=== PATIENT | male | born 1965 | race African-American/Black ===

== ENCOUNTER 2016-02-11 09:36 | Inpatient (IN) | payer OTHER ==
[2016-02-11 10:41] VITALS: BMI 39.9
--- NOTE | 2016-02-11 13:28 | HP ---
Admission ROS [facility] - [facility] Chief Complaint: I am here for rehab. Allergies/Adverse Reactions: Allergies Allergy/AdvReac Type Severity Reaction Status Date / Time ALEKSANDER Inhibitors Allergy Severe unknown Verified 02/11/16 12:26 History of Present Illness: pt is a 50yr old male with a history of alcohol dependence. seeking rehab for treatment. pt is also on a mmtp program received 70mg of methadone today, verification done. Exam Limitations: No Limitations - Ebola screening Have you traveled outside of the country in the last 21 days: No Have you had contact with anyone from an Ebola affected area: No Have you been sick,other than usual withdrawal symptoms: No Do you have a fever: No - Review of Systems Constitutional: No Symptoms Reported EENT: reports: Tearing Respiratory: reports: No Symptoms reported Cardiac: reports: No Symptoms Reported GI: reports: No Symptoms Reported : reports: No Symptoms Reported Musculoskeletal: reports: No Symptoms Reported Integumentary: reports: No Symptoms Reported Neuro: reports: No Symptoms reported Endocrine: reports: No Symptoms Reported Hematology: reports: No Symptoms Reported Psychiatric: reports: Judgement Intact, Orientated x3 Other Systems: Reviewed and Negative Patient History - Patient Medical History Hx Anemia: No Hx Asthma: No Hx Chronic Obstructive Pulmonary Disease (COPD): No Hx Cancer: No Hx Cardiac Disorders: No Hx Congestive Heart Failure: No Hx Hypertension: Yes (not taking any med) Hx Hypercholesterolemia: No Hx Pacemaker: No HX Cerebrovascular Accident: No Hx Seizures: No Hx Dementia: No Hx Diabetes: Yes (on metformin) Hx Gastrointestinal Disorders: No Hx Liver Disease: No Hx Genitourinary Disorders: No Hx Sexually Transmitted Disorders: No Hx Renal Disease (ESRD): No Hx Thyroid Disease: No Hx Human Immunodeficiency Virus (HIV): No (negative) Hx Hepatitis C: No Hx Depression: Yes Hx Suicide Attempt: No (denies) Hx Bipolar Disorder: No Hx Schizophrenia: Yes - Patient Surgical History Past Surgical History: No Hx Neurologic Surgery: No Hx Cataract Extraction: No Hx Cardiac Surgery: No Hx Lung Surgery: No Hx Breast Surgery: No Hx Breast Biopsy: No Hx Abdominal Surgery: No Hx Appendectomy: No Hx Cholecystectomy: No Hx Genitourinary Surgery: No Hx Section: No Hx Orthopedic Surgery: No Anesthesia Reaction: No - PPD History Documented Results: Negative w/proof Date: 01/31/16 PPD to be Administered?: No - Reproductive History Patient is a Female of Child Bearing Age (11 -55 yrs old): No - Smoking Cessation Smoking history: Current every day smoker Have you smoked in the past 12 months: Yes Aproximately how many cigarettes per day: 20 Cigars Per Day: 0 Hx Chewing Tobacco Use: No Initiated information on smoking cessation: Yes 'Breaking Loose' booklet given: 02/11/16 - Substance & Tx. History Hx Alcohol Use: Yes Substance Use Type: Alcohol, Cocaine Hx Substance Use Treatment: No Family Disease History - Family Disease History Family History: Denies Admission Physical Exam [facility] - Vital Signs Vital Signs: Vital Signs - 24 hr 02/11/16 10:39 Temperature 95.6 F L Pulse Rate 59 L Respiratory 20 Rate Blood Pressure 129/70 - Physical General Appearance: Yes: No Apparent Distress, Appropriately Dressed, Tremorous HEENTM: Yes: Hearing grossly Normal, Normal Voice, Nasal Congestion Respiratory: Yes: Lungs Clear, Normal Breath Sounds, No Respiratory Distress Neck: Yes: Within Normal Limits, No masses,lesions,Nodules Breast: Yes: Within Normal Limits Cardiology: Yes: Regular Rhythm, Regular Rate, S1, S2 Abdominal: Yes: Normal Bowel Sounds, Non Tender, Soft Genitourinary: Yes: Within Normal Limits Back: Yes: Normal Inspection Musculoskeletal: Yes: full range of Motion Extremities: Yes: Normal Capillary Refill, Normal Inspection Neurological: Yes: Fully Oriented, Alert, Normal Response Integumentary: Yes: Normal Color Lymphatic: Yes: Within Normal Limits - Diagnostic (1) Nicotine dependence Current Visit: Yes Status: Chronic Qualifiers: Nicotine product type: cigarettes Substance use status: uncomplicated Qualified Code(s): F17.210 - Nicotine dependence, cigarettes, uncomplicated (2) Diabetes mellitus Current Visit: Yes Status: Chronic Qualifiers: Diabetes mellitus type: type 2 Diabetes mellitus complication status: without complication (3) Methadone maintenance therapy patient Current Visit: Yes Status: Chronic Comment: last dose of methadone is 70mg given today. verification done. [facility] Breath Alcohol Content Breath Alcohol Content: 0 Urine Drug Screen - Results Drug Screen Negative: No Urine Drug Screen Results: ANKIT-Cocaine, OPI-Opiates, BZO-Benzodiazepines, MTD- Methadone
[2016-02-11] MEDS ORDERED: MAGNESIUM CITRATE 300 ML BOTTLE PO PRN (13:33)
[2016-02-11] MEDS ORDERED: MAG HYDROX/AL HYDROX/SIMETH 30 ML UNIT-DOSE CUP PO PRN (13:33)
[2016-02-11] MEDS ORDERED: guaiFENesin/D-METHORPHAN HB 10 ML UNIT-DOSE CUPS PO PRN (13:33)
[2016-02-11] MEDS ORDERED: IBUPROFEN 400 MG TABLET (FP) PO PRN (13:33)
[2016-02-11] MEDS ORDERED: MAGNESIUM HYDROX 2400MG/30ML ORAL SUSPENSION 30 ML CUP PO PRN (13:33)
[2016-02-11] MEDS ORDERED: P-EPHED 60MG/TRIPROLIDI 2.5MG TABLET PO PRN (13:33)
[2016-02-11] MEDS ORDERED: hydrOXYzine PAMOATE 50 MG CAPSULE (FP) PO PRN (13:33)
[2016-02-11] MEDS ORDERED: NICOTINE POLACRILEX 4 MG GUM BC PRN (13:33)
[2016-02-11] MEDS ORDERED: ACETAMINOPHEN 325 MG TABLET (FP) PO PRN (13:33)
[2016-02-11] MEDS ORDERED: LOPERAMIDE HCL 2 MG CAPSULE PO PRN (13:33)
[2016-02-11] MEDS ORDERED: MENTHOL/PHENOL 1 EACH UD MM PRN (13:33)
[2016-02-11 20:14] LABS: URINE APPEARANCE SLCLOUDY; URINE BILIRUBIN NEGATIVE (NEGATIVE); URINE BLOOD NEGATIVE (NEGATIVE); URINE COLOR LTYELLOW; URINE GLUCOSE (UA) NEGATIVE (NEGATIVE); URINE KETONE NEGATIVE (NEGATIVE); URINE LEUK ESTERASE NEGATIVE (NEGATIVE); URINE NITRITE NEGATIVE (NEGATIVE); URINE PROTEIN NEGATIVE (NEGATIVE); URINE UROBILINOGEN NEGATIVE E.U./dl (0.2-1.0)
[2016-02-11] MEDS: diphenhydrAMINE HCL 50 MG CAPSULE PO PRN (22:02)
[2016-02-11] MEDS: THIAMINE HCL 100 MG TABLET (FP) PO SCH (22:02)
[2016-02-12] MEDS ORDERED: METHADONE 40 MG, METHADONE 30 MG PO SCH (06:00)
[2016-02-12] MEDS ORDERED: METHADONE HCL 10 MG TABLET PO SCH (06:00)
[2016-02-12] MEDS ORDERED: METHADONE HCL 40 MG DISPERSABLE TABLET ONE (06:36)
[2016-02-12] MEDS ORDERED: METHADONE HCL 10 MG TABLET ONE (06:37)
[2016-02-12] MEDS: metFORMIN HCL 500 MG TABLET (FP) PO SCH (08:30)
[2016-02-12] MEDS: PRENATAL VITAMINS W/ FOLIC ACID TABLET (FP) PO SCH (09:42)
[2016-02-12] MEDS: NICOTINE 21 MG/24 HOURS TOPICAL PATCH TD SCH (09:59)
--- NOTE | 2016-02-12 12:01 | HP ---
Psychiatrist Admission - Data Date of interview: 02/12/16 Admission source: [facility] Identifying data: This is the first admission to [address] [place] [address] rehabilitation for this 50 years old single AA male father of 3,resides alone, supported by [facility] Medical History: Significant for DM. Psychiatric History: Patient was seen by psychiatrist about 10 years ago due to depression,anxiety,drug and alcohol use.Patient is poor historian due to his drowsiness,cognitive impairment and some reluctancy to communicate.Reports 2 psychiatric admissions a few years ago.Patient is not able to recall the name of the hospitals and medications has been taken as well as diagnosis(probably schizophrenia?).He was under care of psychiatrist at [facility].Current medications:Seroquel 100 mg po hs,Prozac 20 mg po daily and Xanax PRN.Report history of auditory hallucinations and paranoid feelings.Patient is willing to restart his Prozac 20 mg po daily and Seroquel 100 mg po hs,still depressed,irritable,somewhat dysphoric. Physical/Sexual Abuse/Trauma History: denies Vital Signs: Vital Signs - 24 hr 02/12/16 02/12/16 00:30 07:35 Temperature 97.5 F L Pulse Rate 54 L Respiratory 20 20 Rate Blood Pressure 139/71 Allergies/Adverse Reactions: Allergies Allergy/AdvReac Type Severity Reaction Status Date / Time ALEKSANDER Inhibitors Allergy Severe unknown Verified 02/11/16 12:26 Date of last physical exam: 02/11/16 Concur with the findings of this exam: Yes - Substance Abuse/Tx History Hx Alcohol Use: Yes (reports drinking since 15 yo,6 packs daily) Hx Substance Use: Yes (heroin since 7 yo(MMTP 70 mg po daily)) Substance Use Type: Alcohol, Heroin Hx Substance Use Treatment: Yes (this is his first inpatient rehab treatment) - Admission Criteria Previous failed treatment: Yes Poor recovery environment: Yes Comorbidities: Yes Lacks judgement: Yes Mental Status Exam - Mental Status Exam Alert and Oriented to: Time, Place, Person Cognitive Function: Grossly Intact Patient Appearance: Unkempt Mood: Sad, Nervous Affect: Labile Patient Behavior: Cooperative Speech Pattern: Clear Voice Loudness: Normal Thought Process: Goal Oriented Thought Disorder: Being Controlled Hallucinations: Denies Suicidal Ideation: Denies Homicidal Ideation: Denies Insight/Judgement: Fair Sleep: Fair Appetite: Fair Muscle strength/Tone: Normal Gait/Station: Normal Psychiatric Findings - Problem List ([place] 1, 2,3) (1) Diabetes mellitus Current Visit: Yes Status: Chronic Qualifiers: Diabetes mellitus type: type 2 Diabetes mellitus complication status: without complication (2) Methadone maintenance therapy patient Current Visit: Yes Status: Chronic Comment: last dose of methadone is 70mg given today. verification done. (3) Nicotine dependence Current Visit: Yes Status: Chronic Qualifiers: Nicotine product type: cigarettes Substance use status: uncomplicated Qualified Code(s): F17.210 - Nicotine dependence, cigarettes, uncomplicated (4) Opioid dependence Current Visit: Yes Status: Chronic (5) Drug-induced mood disorder Current Visit: Yes Status: Chronic (6) Schizoaffective disorder Current Visit: Yes Status: Suspected - Initial Treatment Plan Initial Treatment Plan: Continue current meds:Prozac 20 mg po daily,Seroquel 100 mg po hs.Will monitor progress.
[2016-02-12] MEDS: FLUoxetine HCL 20 MG CAPSULE (FP) PO SCH (13:22)
[2016-02-12] MEDS: QUEtiapine FUMARATE 100 MG TABLET (FP) PO SCH (21:19)
[2016-02-12] MEDS: THIAMINE HCL 100 MG TABLET (FP) PO SCH (21:19)
[2016-02-12] MEDS: diphenhydrAMINE HCL 50 MG CAPSULE PO PRN (21:20)
[2016-02-13] MEDS ORDERED: METHADONE HCL 40 MG DISPERSABLE TABLET PO SCH (06:00)
[2016-02-13] MEDS ORDERED: METHADONE HCL 40 MG DISPERSABLE TABLET ONE (06:18)
[2016-02-13] MEDS ORDERED: METHADONE HCL 10 MG TABLET ONE (06:19)
[2016-02-13] MEDS: metFORMIN HCL 500 MG TABLET (FP) PO SCH (06:19)
[2016-02-13] MEDS: METHADONE 40 MG, METHADONE 20 MG PO SCH (06:20)
[2016-02-13] MEDS: PRENATAL VITAMINS W/ FOLIC ACID TABLET (FP) PO SCH (10:23)
[2016-02-13] MEDS: FLUoxetine HCL 20 MG CAPSULE (FP) PO SCH (10:24)
[2016-02-13] MEDS: NICOTINE 21 MG/24 HOURS TOPICAL PATCH TD SCH (10:24)
--- NOTE | 2016-02-13 14:45 | PN ---
Psychiatric Progress Note Vital Signs: Vital Signs Period Temp Pulse Resp BP Sys/[place] Pulse Ox Last 24 Hr 97.5 F 54 18-18 145/80 Date of Session: 02/13/16 Chief Complaint:: "refusing prozac" HPI: Patient is addressing opioid, nicotine dependence comorbid Schizoaffective disorder ROS: DM and Asthma. Current Medications: Active Medications Generic Name Dose Route Start Last Admin Trade Name Freq PRN Reason Stop Dose Admin Acetaminophen 650 mg 02/11/16 13:33 Tylenol - PO Q4H PRN PAIN Al Hydroxide/Mg Hydroxide 30 ml 02/11/16 13:33 Mylanta Oral Suspension - PO Q6H PRN DYSPEPSIA Diphenhydramine HCl 50 mg 02/11/16 13:33 02/12/16 21:20 Benadryl - PO 50 mg HSMR1 PRN Administration INSOMNIA Eucalyptus/Menthol/Phenol/Sorbitol 1 each 02/11/16 13:33 Cepastat Lozenge - MM Q4H PRN SORE THROAT Guaifenesin 10 ml 02/11/16 13:33 Robitussin Dm - PO Q6H PRN COUGH Hydroxyzine Pamoate 50 mg 02/11/16 13:33 Vistaril - PO Q4H PRN AGITATION Ibuprofen 400 mg 02/11/16 13:33 Motrin - PO Q6H PRN SEVERE PAIN Loperamide HCl 4 mg 02/11/16 13:33 Imodium - PO Q6H PRN DIARRHEA Magnesium Citrate 300 ml 02/11/16 13:33 Citroma - PO Q48H PRN CONSTIPATION Magnesium Hydroxide 30 ml 02/11/16 13:33 Milk Of Magnesia - PO DAILY PRN CONSTIPATION Metformin HCl 1,000 mg 02/12/16 07:00 02/13/16 06:19 Glucophage - PO 1,000 mg ACBK CHAPO Administration Methadone HCl 40 mg/ Methadone 60 mg 02/13/16 06:00 02/13/16 06:20 HCl 20 mg PO 02/18/16 05:59 60 mg DAILY@0600 CHAPO Administration Nicotine 21 mg 02/12/16 10:00 02/13/16 10:24 Nicoderm Patch - TD Not Given DAILY CHAPO Nicotine Polacrilex 4 mg 02/11/16 13:33 Nicorette Gum - BC Q2H PRN NICOTINE REPLACEMENT RX Multivit/Folic Acid/Iron 1 tab 02/12/16 10:00 02/13/16 10:23 Vitamins (Sjr) - PO 1 tab DAILY CHAPO Administration Pseudoephedrine/Triprolidine 1 combo 02/11/16 13:33 Actifed - PO TID PRN NASAL CONGESTION Quetiapine Fumarate 100 mg 02/12/16 22:00 02/12/16 21:19 Seroquel - PO 100 mg HS CHAPO Administration Thiamine HCl 100 mg 02/11/16 22:00 02/12/16 21:19 Vitamin B1 - PO 100 mg HS CHAPO Administration Medication(s) Change(s): d/c prozac Current Side Effect: Yes ("Slow") Lab tests ordered: No Lab tests reviewed: Yes Provider note:: As reported by the staff patient refusing his Prozac, reviwed the chart, Dr.K alegria note apprecieated, patient was seen and asked about Prozac issues, he reported that medications "makes me think slow", and he does not want to continue meds but willing to take Seroquel, properties and indication of each medications discussed with the patient, discussed alternative antidepressants (wellbutrin) patient declined any recommendations, will d/c continue to monitor progress. Psycheducation provided, MSE completed. Total face to face time:: 35 Mental Status Exam - Mental Status Exam Alert and Oriented to: Time, Place, Person Cognitive Function: Grossly Intact Patient Appearance: Well Groomed Mood: Sad Affect: Mood Congruent Patient Behavior: Appropriate Speech Pattern: Appropriate Voice Loudness: Normal Thought Process: Goal Oriented Thought Disorder: Not Present Hallucinations: Denies Suicidal Ideation: Denies Homicidal Ideation: Denies Insight/Judgement: Fair Sleep: Fair Appetite: Fair Muscle strength/Tone: Normal Gait/Station: Normal Psychiatric Treatment Plan - Problem List (1) Nicotine dependence Current Visit: Yes Qualifiers: Nicotine product type: cigarettes Substance use status: uncomplicated Qualified Code(s): F17.210 - Nicotine dependence, cigarettes, uncomplicated (2) Opioid dependence Current Visit: Yes (3) Schizoaffective disorder Current Visit: Yes
[2016-02-13] MEDS: QUEtiapine FUMARATE 100 MG TABLET (FP) PO SCH (21:27)
[2016-02-13] MEDS: THIAMINE HCL 100 MG TABLET (FP) PO SCH (21:27)
[2016-02-13] MEDS: diphenhydrAMINE HCL 50 MG CAPSULE PO PRN (21:27)
[2016-02-14] MEDS ORDERED: METHADONE HCL 10 MG TABLET ONE (03:05)
[2016-02-14] MEDS ORDERED: METHADONE HCL 40 MG DISPERSABLE TABLET ONE (03:05)
[2016-02-14] MEDS: METHADONE 40 MG, METHADONE 20 MG PO SCH (06:11)
[2016-02-14] MEDS: metFORMIN HCL 500 MG TABLET (FP) PO SCH (06:12)
[2016-02-14] MEDS: PRENATAL VITAMINS W/ FOLIC ACID TABLET (FP) PO SCH (10:04)
[2016-02-14] MEDS: NICOTINE 21 MG/24 HOURS TOPICAL PATCH TD SCH (10:04)
[2016-02-14] MEDS: THIAMINE HCL 100 MG TABLET (FP) PO SCH (21:55)
[2016-02-14] MEDS: QUEtiapine FUMARATE 100 MG TABLET (FP) PO SCH (21:55)
[2016-02-14] MEDS: diphenhydrAMINE HCL 50 MG CAPSULE PO PRN (21:55)
[2016-02-15] MEDS ORDERED: METHADONE HCL 10 MG TABLET ONE (04:03)
[2016-02-15] MEDS ORDERED: METHADONE HCL 40 MG DISPERSABLE TABLET ONE (04:03)
[2016-02-15] MEDS: METHADONE 40 MG, METHADONE 20 MG PO SCH (06:01)
[2016-02-15] MEDS: metFORMIN HCL 500 MG TABLET (FP) PO SCH (06:01)
[2016-02-15] MEDS: PRENATAL VITAMINS W/ FOLIC ACID TABLET (FP) PO SCH (10:05)
[2016-02-15] MEDS: NICOTINE 21 MG/24 HOURS TOPICAL PATCH TD SCH (10:05)
[2016-02-15] MEDS: QUEtiapine FUMARATE 100 MG TABLET (FP) PO SCH (21:14)
[2016-02-15] MEDS: THIAMINE HCL 100 MG TABLET (FP) PO SCH (21:14)
[2016-02-15] MEDS: diphenhydrAMINE HCL 50 MG CAPSULE PO PRN (21:15)
[2016-02-16] MEDS ORDERED: METHADONE HCL 40 MG DISPERSABLE TABLET ONE (06:05)
[2016-02-16] MEDS ORDERED: METHADONE HCL 10 MG TABLET ONE (06:06)
[2016-02-16] MEDS: METHADONE 40 MG, METHADONE 20 MG PO SCH (06:06)
[2016-02-16] MEDS: metFORMIN HCL 500 MG TABLET (FP) PO SCH (06:06)
[2016-02-16] MEDS: PRENATAL VITAMINS W/ FOLIC ACID TABLET (FP) PO SCH (10:20)
[2016-02-16] MEDS: NICOTINE 21 MG/24 HOURS TOPICAL PATCH TD SCH (10:20)
[2016-02-16] MEDS: THIAMINE HCL 100 MG TABLET (FP) PO SCH (21:28)
[2016-02-16] MEDS: QUEtiapine FUMARATE 100 MG TABLET (FP) PO SCH (21:28)
[2016-02-16] MEDS: diphenhydrAMINE HCL 50 MG CAPSULE PO PRN (21:29)
[2016-02-17] MEDS ORDERED: METHADONE HCL 40 MG DISPERSABLE TABLET ONE (03:05)
[2016-02-17] MEDS ORDERED: METHADONE HCL 10 MG TABLET ONE (03:05)
[2016-02-17] MEDS: METHADONE 40 MG, METHADONE 20 MG PO SCH (06:06)
[2016-02-17] MEDS: metFORMIN HCL 500 MG TABLET (FP) PO SCH (06:07)
[2016-02-17] MEDS: NICOTINE 21 MG/24 HOURS TOPICAL PATCH TD SCH (09:50)
[2016-02-17] MEDS: PRENATAL VITAMINS W/ FOLIC ACID TABLET (FP) PO SCH (09:50)
--- NOTE | 2016-02-17 12:55 | PN ---
[facility] Progress Note Note: methadone dose decreased to methadone 50mg /d at request of pt.
[2016-02-17] MEDS: QUEtiapine FUMARATE 100 MG TABLET (FP) PO SCH (21:44)
[2016-02-17] MEDS: diphenhydrAMINE HCL 50 MG CAPSULE PO PRN (21:44)
[2016-02-17] MEDS: THIAMINE HCL 100 MG TABLET (FP) PO SCH (21:44)
[2016-02-18] MEDS ORDERED: METHADONE HCL 40 MG DISPERSABLE TABLET ONE (03:17)
[2016-02-18] MEDS ORDERED: METHADONE HCL 10 MG TABLET ONE (03:17)
[2016-02-18] MEDS ORDERED: METHADONE HCL 40 MG DISPERSABLE TABLET PO SCH (06:00)
[2016-02-18] MEDS: METHADONE 40 MG, METHADONE 10 MG PO SCH (06:03)
[2016-02-18] MEDS: metFORMIN HCL 500 MG TABLET (FP) PO SCH (06:03)
[2016-02-18] MEDS: NICOTINE 21 MG/24 HOURS TOPICAL PATCH TD SCH (10:05)
[2016-02-18] MEDS: PRENATAL VITAMINS W/ FOLIC ACID TABLET (FP) PO SCH (10:05)
[2016-02-18] MEDS: diphenhydrAMINE HCL 50 MG CAPSULE PO PRN (21:28)
[2016-02-18] MEDS: QUEtiapine FUMARATE 100 MG TABLET (FP) PO SCH (21:28)
[2016-02-18] MEDS: THIAMINE HCL 100 MG TABLET (FP) PO SCH (21:28)
[2016-02-19] MEDS ORDERED: METHADONE HCL 40 MG DISPERSABLE TABLET ONE (05:08)
[2016-02-19] MEDS ORDERED: METHADONE HCL 10 MG TABLET ONE (05:09)
[2016-02-19] MEDS: metFORMIN HCL 500 MG TABLET (FP) PO SCH (06:09)
[2016-02-19] MEDS: METHADONE 40 MG, METHADONE 10 MG PO SCH (06:09)
[2016-02-19] MEDS: PRENATAL VITAMINS W/ FOLIC ACID TABLET (FP) PO SCH (10:17)
[2016-02-19] MEDS: NICOTINE 21 MG/24 HOURS TOPICAL PATCH TD SCH (10:17)
[2016-02-19] MEDS: QUEtiapine FUMARATE 100 MG TABLET (FP) PO SCH (21:01)
[2016-02-19] MEDS: THIAMINE HCL 100 MG TABLET (FP) PO SCH (21:01)
[2016-02-19] MEDS: diphenhydrAMINE HCL 50 MG CAPSULE PO PRN (21:01)
[2016-02-20] MEDS ORDERED: METHADONE HCL 10 MG TABLET ONE (05:11)
[2016-02-20] MEDS ORDERED: METHADONE HCL 40 MG DISPERSABLE TABLET ONE (05:11)
[2016-02-20] MEDS: metFORMIN HCL 500 MG TABLET (FP) PO SCH (06:33)
[2016-02-20] MEDS: METHADONE 40 MG, METHADONE 10 MG PO SCH (06:33)
--- NOTE | 2016-02-20 07:11 | PN ---
[facility] Progress Note Note: Last Vital Signs Temp Pulse Resp BP Pulse Ox 98.0 F 63 18 165/83 02/20/16 07:04 02/20/16 07:04 02/20/16 07:04 02/20/16 07:04 BP ELEVATED. CLONIDINE 0.1MG BID PRN ORDERED WILL CONTINUE TO MONITOR.
[2016-02-20] MEDS: cloNIDine HCL 0.1 MG TABLET PO PRN (07:58)
[2016-02-20] MEDS: PRENATAL VITAMINS W/ FOLIC ACID TABLET (FP) PO SCH (10:22)
[2016-02-20] MEDS: NICOTINE 21 MG/24 HOURS TOPICAL PATCH TD SCH (10:22)
[2016-02-20] MEDS: QUEtiapine FUMARATE 100 MG TABLET (FP) PO SCH (21:06)
[2016-02-20] MEDS: diphenhydrAMINE HCL 50 MG CAPSULE PO PRN (21:06)
[2016-02-20] MEDS: THIAMINE HCL 100 MG TABLET (FP) PO SCH (21:06)
[2016-02-21] MEDS: metFORMIN HCL 500 MG TABLET (FP) PO SCH (06:09)
[2016-02-21] MEDS: METHADONE HCL 40 MG DISPERSABLE TABLET PO SCH (06:10)
[2016-02-21] MEDS: NICOTINE 21 MG/24 HOURS TOPICAL PATCH TD SCH (09:40)
[2016-02-21] MEDS: PRENATAL VITAMINS W/ FOLIC ACID TABLET (FP) PO SCH (09:40)
[2016-02-21] MEDS: QUEtiapine FUMARATE 100 MG TABLET (FP) PO SCH (21:09)
[2016-02-21] MEDS: THIAMINE HCL 100 MG TABLET (FP) PO SCH (21:09)
[2016-02-21] MEDS: diphenhydrAMINE HCL 50 MG CAPSULE PO PRN (21:11)
[2016-02-22] MEDS: METHADONE HCL 40 MG DISPERSABLE TABLET PO SCH (06:27)
[2016-02-22] MEDS: metFORMIN HCL 500 MG TABLET (FP) PO SCH (06:27)
[2016-02-22] MEDS: PRENATAL VITAMINS W/ FOLIC ACID TABLET (FP) PO SCH (09:45)
[2016-02-22] MEDS: NICOTINE 21 MG/24 HOURS TOPICAL PATCH TD SCH (09:45)
[2016-02-22] MEDS: QUEtiapine FUMARATE 100 MG TABLET (FP) PO SCH (21:05)
[2016-02-22] MEDS: THIAMINE HCL 100 MG TABLET (FP) PO SCH (21:05)
[2016-02-22] MEDS: diphenhydrAMINE HCL 50 MG CAPSULE PO PRN (21:06)
[2016-02-23] MEDS: metFORMIN HCL 500 MG TABLET (FP) PO SCH (06:01)
[2016-02-23] MEDS: METHADONE HCL 40 MG DISPERSABLE TABLET PO SCH (06:01)
[2016-02-23] MEDS: NICOTINE 21 MG/24 HOURS TOPICAL PATCH TD SCH (10:08)
[2016-02-23] MEDS: PRENATAL VITAMINS W/ FOLIC ACID TABLET (FP) PO SCH (10:08)
[2016-02-23] MEDS: THIAMINE HCL 100 MG TABLET (FP) PO SCH (21:15)
[2016-02-23] MEDS: diphenhydrAMINE HCL 50 MG CAPSULE PO PRN (21:15)
[2016-02-23] MEDS: QUEtiapine FUMARATE 100 MG TABLET (FP) PO SCH (21:15)
[2016-02-24] MEDS: metFORMIN HCL 500 MG TABLET (FP) PO SCH (06:07)
[2016-02-24] MEDS: METHADONE HCL 40 MG DISPERSABLE TABLET PO SCH (06:42)
[2016-02-24] MEDS: PRENATAL VITAMINS W/ FOLIC ACID TABLET (FP) PO SCH (09:58)
[2016-02-24] MEDS: NICOTINE 21 MG/24 HOURS TOPICAL PATCH TD SCH (09:59)
[2016-02-24] MEDS: diphenhydrAMINE HCL 50 MG CAPSULE PO PRN (21:11)
[2016-02-24] MEDS: THIAMINE HCL 100 MG TABLET (FP) PO SCH (21:11)
[2016-02-24] MEDS: QUEtiapine FUMARATE 100 MG TABLET (FP) PO SCH (21:11)
[2016-02-25] MEDS: cloNIDine HCL 0.1 MG TABLET PO PRN (06:03)
[2016-02-25] MEDS: metFORMIN HCL 500 MG TABLET (FP) PO SCH (06:03)
[2016-02-25] MEDS: METHADONE HCL 40 MG DISPERSABLE TABLET PO SCH (06:04)
[2016-02-25] MEDS: PRENATAL VITAMINS W/ FOLIC ACID TABLET (FP) PO SCH (10:29)
[2016-02-25] MEDS: NICOTINE 21 MG/24 HOURS TOPICAL PATCH TD SCH (10:29)
[2016-02-25] MEDS: QUEtiapine FUMARATE 100 MG TABLET (FP) PO SCH (21:26)
[2016-02-25] MEDS: THIAMINE HCL 100 MG TABLET (FP) PO SCH (21:26)
[2016-02-25] MEDS: diphenhydrAMINE HCL 50 MG CAPSULE PO PRN (21:27)
[2016-02-26] MEDS: metFORMIN HCL 500 MG TABLET (FP) PO SCH (06:13)
[2016-02-26] MEDS: METHADONE HCL 40 MG DISPERSABLE TABLET PO SCH (06:13)
[2016-02-26 07:24] VITALS: TEMP 98.6
[2016-02-26 08:08] VITALS: BP 143/93; PULSE 68
[2016-02-26] MEDS: PRENATAL VITAMINS W/ FOLIC ACID TABLET (FP) PO SCH (09:50)
[2016-02-26] MEDS: NICOTINE 21 MG/24 HOURS TOPICAL PATCH TD SCH (09:50)
--- NOTE | 2016-02-26 10:02 | PN ---
Psychiatric Progress Note Vital Signs: Vital Signs Period Temp Pulse Resp BP Sys/[place] Pulse Ox Last 24 Hr 98.6 F 62-89 18-18 135-159/78-93 Date of Session: 02/26/16 Chief Complaint:: discharge visit HPI: Patient has addressed opioid, nicotine dependence comorbid Schizoaffective disorder ROS: DM and Asthma medically managed. Current Medications: Active Medications Generic Name Dose Route Start Last Admin Trade Name Freq PRN Reason Stop Dose Admin Acetaminophen 650 mg 02/11/16 13:33 Tylenol - PO Q4H PRN PAIN Al Hydroxide/Mg Hydroxide 30 ml 02/11/16 13:33 Mylanta Oral Suspension - PO Q6H PRN DYSPEPSIA Clonidine 0.1 mg 02/20/16 07:10 02/25/16 06:03 Catapres - PO 0.1 mg BID PRN Administration HYPERTENSION Diphenhydramine HCl 50 mg 02/11/16 13:33 02/25/16 21:27 Benadryl - PO 50 mg HSMR1 PRN Administration INSOMNIA Eucalyptus/Menthol/Phenol/Sorbitol 1 each 02/11/16 13:33 Cepastat Lozenge - MM Q4H PRN SORE THROAT Guaifenesin 10 ml 02/11/16 13:33 Robitussin Dm - PO Q6H PRN COUGH Hydroxyzine Pamoate 50 mg 02/11/16 13:33 Vistaril - PO Q4H PRN AGITATION Ibuprofen 400 mg 02/11/16 13:33 Motrin - PO Q6H PRN SEVERE PAIN Loperamide HCl 4 mg 02/11/16 13:33 Imodium - PO Q6H PRN DIARRHEA Magnesium Citrate 300 ml 02/11/16 13:33 Citroma - PO Q48H PRN CONSTIPATION Magnesium Hydroxide 30 ml 02/11/16 13:33 Milk Of Magnesia - PO DAILY PRN CONSTIPATION Metformin HCl 1,000 mg 02/12/16 07:00 02/26/16 06:13 Glucophage - PO 1,000 mg ACBK CHAPO Administration Methadone HCl 40 mg 02/24/16 06:15 02/26/16 06:13 Dolophine - PO 40 mg DAILY@0600 CHAPO Administration Nicotine 21 mg 02/12/16 10:00 02/26/16 09:50 Nicoderm Patch - TD Not Given DAILY CHAPO Nicotine Polacrilex 4 mg 02/11/16 13:33 Nicorette Gum - BC Q2H PRN NICOTINE REPLACEMENT RX Multivit/Folic Acid/Iron 1 tab 02/12/16 10:00 02/26/16 09:50 Vitamins (Sjr) - PO 1 tab DAILY CHAPO Administration Pseudoephedrine/Triprolidine 1 combo 02/11/16 13:33 Actifed - PO TID PRN NASAL CONGESTION Quetiapine Fumarate 100 mg 02/12/16 22:00 02/25/16 21:26 Seroquel - PO 100 mg HS CHAPO Administration Thiamine HCl 100 mg 02/11/16 22:00 02/25/16 21:26 Vitamin B1 - PO 100 mg HS CHAPO Administration Current Side Effect: No Lab tests ordered: No Lab tests reviewed: Yes Provider note:: The patient has completed today his treatment and met his goals. he will contiue top address his issues at [facility], patient focused on insights he gained in this treatment and ways of changing attitude/behavior for the utilization of supports available to perevent relapses. Medication (seroquel) well tolerated, scripts provided, patient is stable for discharge. Total face to face time:: 20 Mental Status Exam - Mental Status Exam Alert and Oriented to: Time, Place, Person Cognitive Function: Good Patient Appearance: Well Groomed Mood: Hopeful Affect: Appropriate, Mood Congruent Patient Behavior: Appropriate, Cooperative Speech Pattern: Appropriate Voice Loudness: Normal Thought Process: Intact, Goal Oriented Thought Disorder: Not Present Hallucinations: Denies Suicidal Ideation: Denies Homicidal Ideation: Denies Insight/Judgement: Fair Sleep: Fair Appetite: Fair Muscle strength/Tone: Normal Gait/Station: Normal Psychiatric Treatment Plan - Problem List (1) Nicotine dependence Current Visit: Yes Qualifiers: Nicotine product type: cigarettes Substance use status: uncomplicated Qualified Code(s): F17.210 - Nicotine dependence, cigarettes, uncomplicated (2) Opioid dependence Current Visit: Yes (3) Schizoaffective disorder Current Visit: Yes
== END 2016-02-26 10:00 | disposition home or self-care (01) | DRG 772 ==
LOC: YASAS 09:36 → Y5N 14:33
PROVIDERS: ADMIT Psychiatry & Neurology Psychiatry; ATTEND Psychiatry & Neurology Psychiatry
PROC: HZ42ZZZ Group Counseling for Substance Abuse Treatment, Cognitive-Behavioral (ICD-10-PCS; principal; 2016-02-11)
DX: F11.20 Opioid dependence, uncomplicated (principal); F17.210 Nicotine dependence, cigarettes, uncomplicated; F25.9 Schizoaffective disorder, unspecified; F19.24 Other psychoactive substance dependence with psychoactive substance-induced mood disorder; E11.9 Type 2 diabetes mellitus without complications; J45.909 Unspecified asthma, uncomplicated
CPT/HCPCS: 81003; 90853; 93005; 93010

== ENCOUNTER 2017-09-04 10:30 | Inpatient (IN) | payer OTHER ==
[2017-09-04 14:13] VITALS: BMI 29.2
--- NOTE | 2017-09-04 16:26 | HP ---
COWS - Scale Resting Pulse: 1= CT 81-100 Sweatin= Chills/Flushing Restless Observation: 1= Difficult to Sit Still Pupil Size: 1= Pupils >than Normal Bone or Joint Aches: 2= Severe Diffuse Aches Runny Nose/ Eye Tearin= Runny Nose/Eyes GI Upset > 30mins: 2= Nausea/Diarrhea Tremor Observation: 2= Slight Tremor Visible Yawning Observation: 1= 1-2x During Session Anxiety or Irritability: 1=Feels Anxious/Irritable Goose Flesh Skin: 3=Piloerection COWS Score: 17 CIWA Score - CIWA Score Nausea/Vomitin Muscle Tremors: 2 Anxiety: 2 Agitation: 2 Paroxysmal Sweats: 2 Orientation: 0-Oriented Tacttile Disturbances: 2-Mild Itch/Numbness/Burn Auditory Disturbances: 0-None Visual Disturbances: 1-Very Mild Sensitivity Headache: 2-Mild CIWA-Ar Total Score: 15 Admission ROS [facility] - HPI Chief Complaint: I need help, i need to detox Allergies/Adverse Reactions: Allergies Allergy/AdvReac Type Severity Reaction Status Date / Time ALEKSANDER Inhibitors Allergy Severe unknown Verified 02/11/16 12:26 History of Present Illness: 52 y/o man with alcohol and heroin use presents for detox. His last treatment was at [facility] 2 years ago. Exam Limitations: No Limitations - Ebola screening Have you traveled outside of the country in the last 21 days: No (N) Have you had contact with anyone from an Ebola affected area: No Have you been sick,other than usual withdrawal symptoms: No Do you have a fever: No - Review of Systems Constitutional: Changes in sleep EENT: reports: Blurred Vision, Nose Congestion Respiratory: reports: Cough Cardiac: reports: Lightheadedness GI: reports: Poor Appetite, Abdominal cramping : reports: No Symptoms Reported Musculoskeletal: reports: Joint Pain, Muscle Pain Integumentary: reports: No Symptoms Reported Neuro: reports: Headache, Tremors Endocrine: reports: No Symptoms Reported Hematology: reports: No Symptoms Reported Psychiatric: reports: Anxious, Depressed Patient History - Patient Medical History Hx Anemia: No Hx Asthma: Yes Hx Chronic Obstructive Pulmonary Disease (COPD): No Hx Cancer: No Hx Cardiac Disorders: No Hx Congestive Heart Failure: No Hx Hypertension: No Hx Hypercholesterolemia: No Hx Pacemaker: No HX Cerebrovascular Accident: No Hx Seizures: No Hx Dementia: No Hx Diabetes: Yes Hx Gastrointestinal Disorders: No Hx Liver Disease: No Hx Genitourinary Disorders: No Hx Sexually Transmitted Disorders: No Hx Renal Disease (ESRD): No Hx Thyroid Disease: No Hx Human Immunodeficiency Virus (HIV): No Hx Hepatitis C: No Hx Depression: Yes Hx Suicide Attempt: No Hx Bipolar Disorder: No Hx Schizophrenia: Yes - Patient Surgical History Past Surgical History: No - PPD History Previous Implant?: Yes Documented Results: Negative w/proof Implanted On Prior [facility] Admission?: Yes Date: 01/31/16 PPD to be Administered?: Yes - Smoking Cessation Smoking history: Current every day smoker Have you smoked in the past 12 months: Yes Aproximately how many cigarettes per day: 20 Cigars Per Day: 0 Hx Chewing Tobacco Use: No Initiated information on smoking cessation: Yes 'Breaking Loose' booklet given: 09/04/17 - Substance & Tx. History Hx Alcohol Use: Yes (beer and liqour) Hx Substance Use: Yes Substance Use Type: Heroin Hx Substance Use Treatment: Yes - Substances Abused Heroin Route: Smoking Frequency: Daily Amount used: 12 bags Age of first use: 7 Date of Last Use: 09/04/17 Alcohol Route: Oral Frequency: Daily Amount used: 12 cans/ 1 pint Age of first use: 7 Date of Last Use: 09/04/17 Family Disease History - Family Disease History Family History: Unremarkable Admission Physical Exam S - Vital Signs Vital Signs: Vital Signs - 24 hr 09/04/17 14:12 Temperature 96.2 F L Pulse Rate 81 Respiratory 20 Rate Blood Pressure 124/77 - Physical General Appearance: Yes: Alcohol on Breath HEENTM: Yes: Normocephalic, Normal Voice, Nasal Congestion Respiratory: Yes: No Respiratory Distress, No Accessory Muscle Use, Other ( scattered wheezes) Neck: Yes: No masses,lesions,Nodules, Supple Breast: Yes: Breast Exam Deferred Cardiology: Yes: Regular Rhythm, Regular Rate Abdominal: Yes: Normal Bowel Sounds, Non Tender, Soft Genitourinary: Yes: Within Normal Limits Back: Yes: Normal Inspection Musculoskeletal: Yes: Muscle Pain Extremities: Yes: Tremors Neurological: Yes: Alert, Normal Response Integumentary: Yes: Normal Color, Warm - Diagnostic (1) Diabetes mellitus Current Visit: No Status: Chronic Qualifiers: Diabetes mellitus type: type 2 Diabetes mellitus complication status: without complication (2) Nicotine dependence Current Visit: No Status: Chronic Qualifiers: Nicotine product type: cigarettes Substance use status: uncomplicated Qualified Code(s): F17.210 - Nicotine dependence, cigarettes, uncomplicated (3) Opioid dependence Current Visit: Yes Status: Acute Qualifiers: Substance use status: uncomplicated Qualified Code(s): F11.20 - Opioid dependence, uncomplicated (4) Schizoaffective disorder Current Visit: No Status: Suspected Cleared for Admission [facility] - Detox or Rehab [facility] Level of Care: Medically Managed Detox Regimen/Protocol: Methadone/Librium [facility] Breath Alcohol Content Breath Alcohol Content: 0.050 Urine Drug Screen - Results Drug Screen Negative: No Urine Drug Screen Results: OPI-Opiates, BZO-Benzodiazepines
[2017-09-04] MEDS ORDERED: MENTHOL/PHENOL 1 EACH UD MM PRN (16:32)
[2017-09-04] MEDS ORDERED: MAGNESIUM HYDROX 2400MG/30ML ORAL SUSPENSION 30 ML CUP PO PRN (16:32)
[2017-09-04] MEDS ORDERED: NICOTINE POLACRILEX 2 MG GUM BUC PRN (16:32)
[2017-09-04] MEDS ORDERED: IBUPROFEN 400 MG TABLET (FP) PO PRN (16:32)
[2017-09-04] MEDS ORDERED: MAGNESIUM CITRATE 300 ML BOTTLE PO PRN (16:32)
[2017-09-04] MEDS ORDERED: chlordiazePOXIDE HCL 25 MG CAPSULE PO ONE (16:32)
[2017-09-04] MEDS ORDERED: guaiFENesin/D-METHORPHAN HB 10 ML UNIT-DOSE CUPS PO PRN (16:32)
[2017-09-04] MEDS ORDERED: LOPERAMIDE HCL 2 MG CAPSULE PO PRN (16:32)
[2017-09-04] MEDS ORDERED: MAG HYDROX/AL HYDROX/SIMETH 30 ML UNIT-DOSE CUP PO PRN (16:32)
[2017-09-04] MEDS ORDERED: METHADONE HCL 10 MG TABLET (FOR DETOX USE ONLY) PO ONE ×2 (16:32→23:00)
[2017-09-04] MEDS ORDERED: P-EPHED 60MG/TRIPROLIDI 2.5MG TABLET PO PRN (16:32)
[2017-09-04] MEDS ORDERED: hydrOXYzine PAMOATE 50 MG CAPSULE (FP) PO PRN (16:32)
[2017-09-04] MEDS ORDERED: ALBUTEROL SO4 8 GM HFA INHALER IH PRN (16:36)
[2017-09-04] MEDS: chlordiazePOXIDE HCL 25 MG CAPSULE PO SCH ×2 (18:05→22:12)
[2017-09-04] MEDS: NICOTINE 14 MG/24 HOURS TOPICAL PATCH TD SCH (18:09)
[2017-09-04] MEDS ORDERED: MELATONIN 5 MG TABLETS PO PRN (22:00)
[2017-09-04] MEDS: THIAMINE HCL 100 MG TABLET (FP) PO SCH (22:11)
[2017-09-05 02:33] LABS: URINE APPEARANCE CLOUDY; URINE BILIRUBIN NEGATIVE (<2.0 mg/dL); URINE COLOR LTYELLOW; URINE GLUCOSE (UA) NEGATIVE (NEGATIVE); URINE KETONE NEGATIVE (NEGATIVE); URINE LEUK ESTERASE NEGATIVE (NEGATIVE); URINE NITRITE NEGATIVE (NEGATIVE); URINE PROTEIN NEGATIVE (NEGATIVE); URINE UROBILINOGEN NEGATIVE mg/dL (0.2-1.0)
[2017-09-05] MEDS: chlordiazePOXIDE HCL 25 MG CAPSULE PO SCH ×4 (05:27→22:04)
[2017-09-05] MEDS: metFORMIN HCL 500 MG TABLET (FP) PO SCH ×2 (08:46→17:00)
[2017-09-05] MEDS ORDERED: METHADONE HCL 10 MG TABLET (FOR DETOX USE ONLY) PO SCH (10:00)
[2017-09-05 10:14] LABS: HEMATOCRIT 34.7 % (35.4-49); HEMOGLOBIN 11.9 GM/dL (11.7-16.9); MCH 34.1 pg (25.7-33.7); MCHC 34.3 g/dl (32.0-35.9); MEAN CELL VOLUME 99.3 fl (80-96); MEAN PLT VOLUME 7.6 fl (7.5-11.1); PLATELET COUNT 324 K/MM3 (134-434); RBC 3.49 M/mm3 (4.00-5.60); RDW 14.6 % (11.9-15.9); WHITE BLOOD COUNT 6.6 K/mm3 (4.0-10.0)
[2017-09-05] MEDS: PRENATAL VITAMINS W/ FOLIC ACID TABLET (FP) PO SCH (10:15)
[2017-09-05] MEDS: ACETAMINOPHEN 325 MG TABLET (FP) PO PRN (10:16)
[2017-09-05] MEDS: NICOTINE 14 MG/24 HOURS TOPICAL PATCH TD SCH (10:16)
[2017-09-05 10:22] LABS: CHLORIDE 108 mmol/L (98-107); POTASSIUM 4.9 mmol/L (3.5-5.1); SODIUM 144 mmol/L (136-145)
[2017-09-05 10:33] LABS: ALBUMIN 3.2 g/dl (3.4-5.0); ALK PHOS 92 U/L (45-117); ANION GAP 6 (8-16); BILIRUBIN,TOTAL 0.3 mg/dL (0.2-1.0); BLOOD UREA NITROGEN 13 mg/dL (7-18); CALCIUM 9.4 mg/dL (8.5-10.1); CO2 30 mmol/L (21-32); CREATININE 0.8 mg/dL (0.7-1.3); GLUCOSE,RANDOM 119 mg/dL (74-106); SGOT/AST 19 U/L (15-37); SGPT/ALT 22 U/L (12-78); TOT PROT 6.5 g/dl (6.4-8.2)
--- NOTE | 2017-09-05 11:15 | PN ---
[facility] CIWA - CIWA Score Nausea/Vomitin-No Nausea/No Vomiting Muscle Tremors: 4-Moderate,w/Arms Extend Anxiety: 3 Agitation: 4-Moderately Restless Paroxysmal Sweats: 1-Minimal Palms Moist Orientation: 0-Oriented Tacttile Disturbances: 1-Very Mild Itch/Numbness Auditory Disturbances: 0-None Visual Disturbances: 0-None Headache: 0-None Present CIWA-Ar Total Score: 13 S COWS - Scale Resting Pulse: 0= [place] 80 or Below Sweatin= Chills/Flushing Restless Observation: 1= Difficult to Sit Still Pupil Size: 0= Normal to Room Light Bone or Joint Aches: 2= Severe Diffuse Aches Runny Nose/ Eye Tearin= Nasal Congestion GI Upset > 30mins: 2= Nausea/Diarrhea Tremor Observation of Outstretched Hands: 2= Slight Tremor Visible Yawning Observation: 2= >3x During Session Anxiety or Irritability: 2=Irritable/Anxious Goose Flesh Skin: 0=Smooth Skin COWS Score: 13 S Progress Note (SOAP) Subjective: body aches joints pain sweat tremor restlessness anxiety Objective: 09/05/17 11:14 Vital Signs Temperature 97.3 F L 09/05/17 06:00 Pulse Rate 54 L 09/05/17 06:00 Respiratory Rate 18 09/05/17 06:00 Blood Pressure 148/77 09/05/17 06:00 O2 Sat by Pulse Oximetry (%) Laboratory Last Values WBC 6.6 K/mm3 (4.0-10.0) 09/05/17 07:45 RBC 3.49 M/mm3 (4.00-5.60) L 09/05/17 07:45 Hgb 11.9 GM/dL (11.7-16.9) 09/05/17 07:45 Hct 34.7 % (35.4-49) L 09/05/17 07:45 MCV 99.3 fl (80-96) H 09/05/17 07:45 MCH 34.1 pg (25.7-33.7) H 09/05/17 07:45 MCHC 34.3 g/dl (32.0-35.9) 09/05/17 07:45 RDW 14.6 % (11.9-15.9) 09/05/17 07:45 Plt Count 324 K/MM3 (134-434) 09/05/17 07:45 MPV 7.6 fl (7.5-11.1) 09/05/17 07:45 Sodium 144 mmol/L (136-145) 09/05/17 07:45 Potassium 4.9 mmol/L (3.5-5.1) 09/05/17 07:45 Chloride 108 mmol/L (98-107) H 09/05/17 07:45 Carbon Dioxide 30 mmol/L (21-32) D 09/05/17 07:45 Anion Gap 6 (8-16) L 09/05/17 07:45 BUN 13 mg/dL (7-18) 09/05/17 07:45 Creatinine 0.8 mg/dL (0.7-1.3) 09/05/17 07:45 Creat Clearance w eGFR > 60 (>60) 09/05/17 07:45 POC Glucometer 104 UNITS (80-120) 09/05/17 05:29 Random Glucose 119 mg/dL (74-106) H 09/05/17 07:45 Calcium 9.4 mg/dL (8.5-10.1) 09/05/17 07:45 Total Bilirubin 0.3 mg/dL (0.2-1.0) 09/05/17 07:45 AST 19 U/L (15-37) 09/05/17 07:45 ALT 22 U/L (12-78) D 09/05/17 07:45 Alkaline Phosphatase 92 U/L (45-117) 09/05/17 07:45 Total Protein 6.5 g/dl (6.4-8.2) 09/05/17 07:45 Albumin 3.2 g/dl (3.4-5.0) L 09/05/17 07:45 Urine Color Ltyellow 09/05/17 01:00 Urine Appearance Cloudy 09/05/17 01:00 Urine pH 5.0 (5.0-8.0) D 09/05/17 01:00 Ur Specific [place] 1.017 (1.001-1.035) 09/05/17 01:00 Urine Protein Negative (NEGATIVE) 09/05/17 01:00 Urine Glucose (UA) Negative (NEGATIVE) 09/05/17 01:00 Urine Ketones Negative (NEGATIVE) 09/05/17 01:00 Urine Blood Negative (NEGATIVE) 09/05/17 01:00 Urine Nitrite Negative (NEGATIVE) 09/05/17 01:00 Urine Bilirubin Negative (<2.0 mg/dL) 09/05/17 01:00 Urine Urobilinogen Negative mg/dL (0.2-1.0) 09/05/17 01:00 Ur Leukocyte Esterase Negative (NEGATIVE) 09/05/17 01:00 RPR Titer Nonreactive (NONREACTIVE) 09/05/17 07:45 lab noted Assessment: 09/05/17 11:20 withdrawal sx Plan: continue detox
--- NOTE | 2017-09-05 13:03 | CONSULT ---
[facility] Psychiatric Consult - Data Date of interview: 09/05/17 Admission source: Self-referred Identifying data: Mr Martinez is a 52 years old single Black male, father of 4 children, unemployed on SSI, domiciled living alone seeking detox treatment for alcohol and opioid Substance Abuse History: Reports history of alcohol and heroin use. Refer to addiction counselor's summary for further information Medical History: Significant for bronchial asthma, diabetes mellitus. Smokes cigarettes 1ppd Psychiatric History: Patient is a poor historian and historical narrative is not consistent with entries from previous admission. He reports that his first psychiatric contact was more than 12 years ago when he was admitted to a hospital in [place] and diagnosed with Schizophrenia. Claims that since he has been seeing psychiatrist on & off. Currently he sees a psychiatrist on [facility] in [place], [place] and he is prescribed medications. Besides Xanax 2 mg po TID he has no recollection of the names of his prescribed medications. Pharmacy claims show that scripts for Risperdal 1 mg #60, Bentropin 0.5 mg #60, Prozac 20 mg #30 and Alprazolam 2 mg #60 were filled on at [facility]. Denies history of previous suicidal attempt. At present, reports feeling anxious and sleeping poorly Physical/Sexual Abuse/Trauma History: Deniesc history of emotional, physical or sexual abuse as DV relationship. No service. Additional Comment: Reports history of multiple previous arrests including one distant felony conviction. Denies being on parole/probation at present Mental Status Exam - Mental Status Exam Alert and Oriented to: Time, Place, Person Cognitive Function: Fair Patient Appearance: Well Groomed Mood: Anxious Affect: Appropriate Patient Behavior: Cooperative Speech Pattern: Clear Voice Loudness: Normal Thought Process: Intact Thought Disorder: Not Present Hallucinations: Denies Suicidal Ideation: Denies Homicidal Ideation: Denies Insight/Judgement: Fair Sleep: Poorly Appetite: Fair Muscle strength/Tone: Normal Gait/Station: Normal Psychiatric Findings - Problem List ([place] 1, 2,3) (1) Schizoaffective disorder Current Visit: No Status: Chronic (2) Substance-induced anxiety disorder Current Visit: Yes Status: Acute (3) Substance-induced sleep disorder Current Visit: Yes Status: Acute (4) Alcohol dependence with uncomplicated withdrawal Current Visit: Yes Status: Acute (5) Opioid dependence with withdrawal Current Visit: Yes Status: Acute (6) Nicotine dependence Current Visit: Yes Status: Acute Qualifiers: Nicotine product type: cigarettes Substance use status: in withdrawal Qualified Code(s): F17.213 - Nicotine dependence, cigarettes, with withdrawal (7) Diabetes mellitus Current Visit: Yes Status: Chronic Qualifiers: Diabetes mellitus type: type 2 Diabetes mellitus terminal block assembler insulin use: without group home use Diabetes mellitus complication status: without complication Qualified Code(s): E11.9 - Type 2 diabetes mellitus without complications (8) Asthma Current Visit: Yes Status: Acute Qualifiers: Asthma severity: mild Asthma persistence: intermittent Asthma complication type: with status asthmaticus Qualified Code(s): J45.22 - Mild intermittent asthma with status asthmaticus - Initial Treatment Plan Initial Treatment Plan: 1) Continue Risperdal 5 mg po BID, Cogentin 0.5 mg po BID, Prozac 20 mg po daily. 2) Start Seroquel 50 mg po HS for insomnia. 3) Continue inpatientdetoxification. Patient has a scheduled appointment with his psychiatrist on 09/09/17. No need for scripts to be electronically transmitted to his pharmacy at this time
[2017-09-05] MEDS: chlordiazePOXIDE HCL 25 MG CAPSULE PO PRN ×2 (13:33→20:01)
[2017-09-05] MEDS: risperiDONE 1 MG TABLET (FP) PO SCH ×2 (14:42→22:04)
[2017-09-05] MEDS: BENZTROPINE MESYLATE 1 MG TABLET (FP) PO SCH ×2 (14:42→22:04)
[2017-09-05] MEDS: FLUoxetine HCL 20 MG CAPSULE (FP) PO SCH (14:43)
[2017-09-05] MEDS ORDERED: QUEtiapine FUMARATE 50 MG TABLET PO SCH (22:00)
[2017-09-05] MEDS: THIAMINE HCL 100 MG TABLET (FP) PO SCH (22:04)
[2017-09-06] MEDS: chlordiazePOXIDE HCL 25 MG CAPSULE PO SCH ×2 (05:15→10:19)
[2017-09-06] MEDS: ACETAMINOPHEN 325 MG TABLET (FP) PO PRN (07:23)
[2017-09-06] MEDS: metFORMIN HCL 500 MG TABLET (FP) PO SCH (07:23)
[2017-09-06 09:51] VITALS: BP 153/89; PULSE 80; TEMP 97.8
[2017-09-06] MEDS ORDERED: METHADONE HCL 5 MG TABLET (FOR DETOX USE ONLY) PO SCH (10:00)
[2017-09-06] MEDS: BENZTROPINE MESYLATE 1 MG TABLET (FP) PO SCH (10:19)
[2017-09-06] MEDS: PRENATAL VITAMINS W/ FOLIC ACID TABLET (FP) PO SCH (10:19)
[2017-09-06] MEDS: risperiDONE 1 MG TABLET (FP) PO SCH (10:19)
[2017-09-06] MEDS: FLUoxetine HCL 20 MG CAPSULE (FP) PO SCH (10:19)
[2017-09-06] MEDS: NICOTINE 14 MG/24 HOURS TOPICAL PATCH TD SCH (10:20)
--- NOTE | 2017-09-06 10:53 | EKG ---
Test Reason : Blood Pressure : / mmHG Vent. Rate : 073 BPM Atrial Rate : 073 BPM P-R Int : 122 ms QRS Dur : 084 ms QT Int : 376 ms P-R-T Axes : 072 049 009 degrees QTc Int : 414 ms NORMAL SINUS RHYTHM WITH SINUS ARRHYTHMIA NORMAL ECG NO PREVIOUS ECGS AVAILABLE Confirmed by DAMIÁN MORENO MD ([id number]) on 09/06/2017 10:53:18 AM Referred By: Confirmed By:DAMIÁN MORENO MD
--- NOTE | 2017-09-06 11:51 | DS ---
[facility] Detox Discharge Summary Admission Date: 09/04/17 Discharge Date: 09/06/17 - History Present History: Alcohol Dependence, Opioid Dependence Additional Comments: 52 years old male admitted on 09/04/17 for alcohol and opiate withdrawal sx insists to leave the detox facility to meet with his family and friends alert oriented x 3 no acute distress denies suicidal denies homocidal no self destructive behavior states that family and friends needed his attention at this time - Physical Exam Results Vital Signs: Vital Signs Temperature 97.8 F 09/06/17 09:51 Pulse Rate 80 09/06/17 09:51 Respiratory Rate 18 09/06/17 09:51 Blood Pressure 153/89 09/06/17 09:51 O2 Sat by Pulse Oximetry (%) Pertinent Admission Physical Exam Findings: alcohol and opiate withdrawal sx Vital Signs Temperature 97.8 F 09/06/17 09:51 Pulse Rate 80 09/06/17 09:51 Respiratory Rate 18 09/06/17 09:51 Blood Pressure 153/89 09/06/17 09:51 O2 Sat by Pulse Oximetry (%) Laboratory Last Values WBC 6.6 K/mm3 (4.0-10.0) 09/05/17 07:45 RBC 3.49 M/mm3 (4.00-5.60) L 09/05/17 07:45 Hgb 11.9 GM/dL (11.7-16.9) 09/05/17 07:45 Hct 34.7 % (35.4-49) L 09/05/17 07:45 MCV 99.3 fl (80-96) H 09/05/17 07:45 MCH 34.1 pg (25.7-33.7) H 09/05/17 07:45 MCHC 34.3 g/dl (32.0-35.9) 09/05/17 07:45 RDW 14.6 % (11.9-15.9) 09/05/17 07:45 Plt Count 324 K/MM3 (134-434) 09/05/17 07:45 MPV 7.6 fl (7.5-11.1) 09/05/17 07:45 Sodium 144 mmol/L (136-145) 09/05/17 07:45 Potassium 4.9 mmol/L (3.5-5.1) 09/05/17 07:45 Chloride 108 mmol/L (98-107) H 09/05/17 07:45 Carbon Dioxide 30 mmol/L (21-32) D 09/05/17 07:45 Anion Gap 6 (8-16) L 09/05/17 07:45 BUN 13 mg/dL (7-18) 09/05/17 07:45 Creatinine 0.8 mg/dL (0.7-1.3) 09/05/17 07:45 Creat Clearance w eGFR > 60 (>60) 09/05/17 07:45 POC Glucometer 173 UNITS (80-120) 09/06/17 05:13 Random Glucose 119 mg/dL (74-106) H 09/05/17 07:45 Calcium 9.4 mg/dL (8.5-10.1) 09/05/17 07:45 Total Bilirubin 0.3 mg/dL (0.2-1.0) 09/05/17 07:45 AST 19 U/L (15-37) 09/05/17 07:45 ALT 22 U/L (12-78) D 09/05/17 07:45 Alkaline Phosphatase 92 U/L (45-117) 09/05/17 07:45 Total Protein 6.5 g/dl (6.4-8.2) 09/05/17 07:45 Albumin 3.2 g/dl (3.4-5.0) L 09/05/17 07:45 Urine Color Ltyellow 09/05/17 01:00 Urine Appearance Cloudy 09/05/17 01:00 Urine pH 5.0 (5.0-8.0) D 09/05/17 01:00 Ur Specific [place] 1.017 (1.001-1.035) 09/05/17 01:00 Urine Protein Negative (NEGATIVE) 09/05/17 01:00 Urine Glucose (UA) Negative (NEGATIVE) 09/05/17 01:00 Urine Ketones Negative (NEGATIVE) 09/05/17 01:00 Urine Blood Negative (NEGATIVE) 09/05/17 01:00 Urine Nitrite Negative (NEGATIVE) 09/05/17 01:00 Urine Bilirubin Negative (<2.0 mg/dL) 09/05/17 01:00 Urine Urobilinogen Negative mg/dL (0.2-1.0) 09/05/17 01:00 Ur Leukocyte Esterase Negative (NEGATIVE) 09/05/17 01:00 RPR Titer Nonreactive (NONREACTIVE) 09/05/17 07:45 lab noted discuss dietary regimen for elevation of bp and glucose serum level discuss medication adherence and risks of uncontrolled bp and glycemia strong recommend the patient to follow up with primary care provider in the [facility] - Treatment Hospital Course: Detox Protocol Followed, Responded well Patient has Accepted a Rehab Referral to: patient wants to go to [facility] - Medication Discharge Medications: Ambulatory Orders Quetiapine Fumarate [Seroquel -] 50 mg PO HS #60 tablet 02/25/16 metFORMIN HCL [Glucophage -] 1,000 mg PO ACBK #30 tablet 09/06/17 - Diagnosis (1) Nicotine dependence Current Visit: Yes Status: Acute Qualifiers: Nicotine product type: cigarettes Substance use status: in withdrawal Qualified Code(s): F17.213 - Nicotine dependence, cigarettes, with withdrawal (2) Diabetes mellitus Current Visit: Yes Status: Chronic Qualifiers: Diabetes mellitus type: type 2 Diabetes mellitus chcf insulin use: without chcf use Diabetes mellitus complication status: without complication Qualified Code(s): E11.9 - Type 2 diabetes mellitus without complications (3) Drug-induced mood disorder Current Visit: Yes Status: Suspected (4) Alcohol dependence with uncomplicated withdrawal Current Visit: Yes Status: Acute (5) Opioid dependence with withdrawal Current Visit: Yes Status: Acute (6) Asthma Current Visit: Yes Status: Acute Qualifiers: Asthma severity: mild Asthma persistence: intermittent Asthma complication type: with status asthmaticus Qualified Code(s): J45.22 - Mild intermittent asthma with status asthmaticus - AMA Did Patient Leave Against Medical Advice: Yes
[2017-09-06] MEDS ORDERED: chlordiazePOXIDE 5 MG CAPSULE PO SCH (17:00)
[2017-09-07] MEDS ORDERED: chlordiazePOXIDE HCL 10 MG CAPSULE PO SCH (17:00)
[2017-09-08] MEDS ORDERED: METHADONE HCL 10 MG TABLET (FOR DETOX USE ONLY) PO SCH (10:00)
[2017-09-09] MEDS ORDERED: METHADONE HCL 5 MG TABLET (FOR DETOX USE ONLY) PO SCH (06:00)
== END 2017-09-06 11:38 | disposition left against medical advice (07) | DRG 770 ==
LOC: YASAS 10:30 → Y6N 17:15
PROVIDERS: ADMIT Surgery; ATTEND Surgery
PROC: HZ2ZZZZ Detoxification Services for Substance Abuse Treatment (ICD-10-PCS; principal; 2017-09-04)
DX: F11.23 Opioid dependence with withdrawal (principal); F10.230 Alcohol dependence with withdrawal, uncomplicated; F17.213 Nicotine dependence, cigarettes, with withdrawal; F19.282 Other psychoactive substance dependence with psychoactive substance-induced sleep disorder; F19.24 Other psychoactive substance dependence with psychoactive substance-induced mood disorder; F25.9 Schizoaffective disorder, unspecified; E11.9 Type 2 diabetes mellitus without complications; Z79.84 Long term (current) use of oral hypoglycemic drugs; J45.22 Mild intermittent asthma with status asthmaticus
CPT/HCPCS: 36415; 80053; 81003; 82962; 85027; 86593; 93005; 93010; J2794

== ENCOUNTER 2023-04-24 20:34 | Inpatient (IN) | payer OTHER ==
[2023-04-24 21:26] VITALS: BMI 19.9
[2023-04-24] MEDS ORDERED: NICOTINE POLACRILEX 4 MG GUM BUC PRN (21:54)
[2023-04-24] MEDS ORDERED: chlordiazePOXIDE HCL 25 MG CAPSULE PO PRN (21:54)
[2023-04-24] MEDS ORDERED: LOPERAMIDE HCL 2 MG CAPSULE PO PRN (21:54)
[2023-04-24] MEDS ORDERED: NALOXONE HCL 0.4 MG/ML VIAL IM PRN (21:54)
[2023-04-24] MEDS ORDERED: ACETAMINOPHEN 325 MG TABLET (FP) PO PRN (21:54)
[2023-04-24] MEDS ORDERED: MAG HYDROX/AL HYDROX/SIMETH 30 ML UNIT-DOSE CUP PO PRN (21:54)
[2023-04-24] MEDS ORDERED: DICYCLOMINE HCL 10 MG CAPSULE PO PRN (21:54)
[2023-04-24] MEDS ORDERED: BISMUTH SUBSALICYLATE 524 MG/30 ML PO PRN (21:54)
[2023-04-24] MEDS ORDERED: BENZONATATE 200 MG CAPSULE PO PRN (21:54)
[2023-04-24] MEDS ORDERED: NALOXONE HCL (KLOXXADO) 8 MG SPRAY NS PRN (21:54)
[2023-04-24] MEDS ORDERED: POLYETHYLENE GLYCOL (HEALTHYLAX) 3350 17 GM PACKET PO PRN (21:54)
[2023-04-24] MEDS ORDERED: IBUPROFEN 600 MG TABLET (FP) PO PRN (21:54)
[2023-04-24] MEDS ORDERED: MAGNESIUM HYDROX 2400MG/30ML ORAL SUSPENSION 30 ML CUP PO PRN (21:54)
[2023-04-24] MEDS ORDERED: guaiFENesin 600 MG TABLET.ER (FP) PO PRN (21:54)
[2023-04-24] MEDS ORDERED: chlordiazePOXIDE HCL 25 MG CAPSULE ONE (22:59)
[2023-04-24] MEDS ORDERED: MELATONIN 5 MG TABLETS ONE (22:59)
[2023-04-24] MEDS: chlordiazePOXIDE HCL 25 MG CAPSULE PO SCH (23:08)
[2023-04-24] MEDS: MELATONIN 5 MG TABLETS PO SCH (23:08)
[2023-04-24] MEDS: THIAMINE HCL 100 MG TABLET (FP) PO SCH (23:08)
[2023-04-24] MEDS: IBUPROFEN 400 MG TABLET (FP) PO PRN (23:10)
[2023-04-24] MEDS ORDERED: IBUPROFEN 400 MG TABLET (FP) PO ONE (23:10)
[2023-04-25] MEDS: PRENATAL VITAMINS W/ FOLIC ACID TABLET (FP) PO SCH (09:17)
[2023-04-25] MEDS: ONDANSETRON *ODT* 4 MG TABLET SL PRN (09:17)
[2023-04-25] MEDS: NICOTINE 14 MG/24 HOURS TOPICAL PATCH TD SCH (10:35)
[2023-04-25] MEDS: methaDONE 80 MG, methaDONE 10 MG PO SCH (10:39)
[2023-04-25 10:59] LABS: HEMATOCRIT 28.1 % (35.4-49); HEMOGLOBIN 9.7 GM/dL (11.7-16.9); MCH 33.4 pg (25.7-33.7); MCHC 34.4 g/dl (32.0-35.9); MEAN CELL VOLUME 97.1 fl (80-96); MEAN PLT VOLUME 7.2 fl (7.5-11.1); PLATELET COUNT 513 10^3/uL (134-434); RDW 15.5 % (11.9-15.9); WHITE BLOOD COUNT 5.2 K/mm3 (4.0-10.0)
[2023-04-25 11:13] LABS: CHLORIDE 107 mmol/L (98-107); POTASSIUM 4.4 mmol/L (3.5-5.1); SODIUM 142 mmol/L (136-145)
[2023-04-25 11:17] LABS: ANION GAP 7 mmol/L (4-13); BLOOD UREA NITROGEN 27.2 mg/dL (7-18); CALCIUM 8.9 mg/dL (8.5-10.1); CO2 28 mmol/L (21-32); GLUCOSE,RANDOM 211 mg/dL (74-106)
[2023-04-25 11:21] LABS: SGOT/AST 32 U/L (15-37)
[2023-04-25 11:22] LABS: BILIRUBIN,TOTAL 0.1 mg/dL (0.2-1)
[2023-04-25 11:23] LABS: ALK PHOS 96 U/L (45-117)
[2023-04-25] MEDS: methaDONE HCL 40 MG DISPERSABLE TABLET PO SCH (11:26)
[2023-04-25 11:32] LABS: SGPT/ALT 28 U/L (13-61)
[2023-04-26] MEDS: chlordiazePOXIDE HCL 25 MG CAPSULE PO SCH (05:11)
[2023-04-26] MEDS: BENZOCAINE/MENTHOL (CHLORASEPTIC ) LOZENGE MM PRN (05:34)
[2023-04-26] MEDS: INSULIN ASPART SLIDING SCALE (NOVOLOG) 1 VIAL SQ SCH (06:00)
[2023-04-26 09:29] VITALS: BP 147/80; PULSE 83; RESP 18; TEMP 97.8
[2023-04-27] MEDS ORDERED: chlordiazePOXIDE HCL 10 MG CAPSULE PO PRN
[2023-04-27] MEDS ORDERED: chlordiazePOXIDE HCL 10 MG CAPSULE PO SCH (05:00)
[2023-04-28] MEDS ORDERED: chlordiazePOXIDE HCL 10 MG CAPSULE PO SCH (05:00)
[2023-04-29] MEDS ORDERED: chlordiazePOXIDE HCL 10 MG CAPSULE PO ONE (05:00)
== END 2023-04-26 10:30 | disposition left against medical advice (07) | DRG 770 ==
LOC: YASAS 20:34 → Y6N 22:28
PROVIDERS: ADMIT Allergy & Immunology; ATTEND Surgery
PROC: HZ2ZZZZ Detoxification Services for Substance Abuse Treatment (ICD-10-PCS; principal; 2023-04-24)
DX: F10.230 Alcohol dependence with withdrawal, uncomplicated (principal); F11.20 Opioid dependence, uncomplicated; F17.210 Nicotine dependence, cigarettes, uncomplicated; F20.9 Schizophrenia, unspecified; F19.24 Other psychoactive substance dependence with psychoactive substance-induced mood disorder; E78.5 Hyperlipidemia, unspecified; I10 Essential (primary) hypertension; E11.9 Type 2 diabetes mellitus without complications; Z79.84 Long term (current) use of oral hypoglycemic drugs; J45.20 Mild intermittent asthma, uncomplicated; M54.9 Dorsalgia, unspecified; Z88.8 Allergy status to other drugs, medicaments and biological substances
CPT/HCPCS: 36415; 80053; 80305; 80307; 82962; 85027; 86780; 87635; 87811; 93005; 93010; Q0162

== ENCOUNTER 2023-04-27 09:48 | Inpatient (IN) | payer OTHER ==
[2023-04-27 10:13] VITALS: BMI 21.5
[2023-04-27] MEDS ORDERED: ACETAMINOPHEN 325 MG TABLET (FP) PO PRN (11:24)
[2023-04-27] MEDS ORDERED: DICYCLOMINE HCL 10 MG CAPSULE PO PRN (11:24)
[2023-04-27] MEDS ORDERED: BISMUTH SUBSALICYLATE 262 MG/15 ML BTL PO PRN (11:24)
[2023-04-27] MEDS ORDERED: IBUPROFEN 400 MG TABLET (FP) PO PRN (11:24)
[2023-04-27] MEDS ORDERED: guaiFENesin 600 MG TABLET.ER (FP) PO PRN (11:24)
[2023-04-27] MEDS ORDERED: NALOXONE HCL 0.4 MG/ML VIAL IM PRN (11:24)
[2023-04-27] MEDS ORDERED: MAG HYDROX/AL HYDROX/SIMETH 30 ML UNIT-DOSE CUP PO PRN (11:24)
[2023-04-27] MEDS ORDERED: ONDANSETRON *ODT* 4 MG TABLET SL PRN (11:24)
[2023-04-27] MEDS ORDERED: NALOXONE HCL (KLOXXADO) 8 MG SPRAY NS PRN (11:24)
[2023-04-27] MEDS ORDERED: LOPERAMIDE HCL 2 MG CAPSULE PO PRN (11:24)
[2023-04-27] MEDS ORDERED: IBUPROFEN 600 MG TABLET (FP) PO PRN (11:24)
[2023-04-27] MEDS ORDERED: POLYETHYLENE GLYCOL (HEALTHYLAX) 3350 17 GM PACKET PO PRN (11:24)
[2023-04-27] MEDS ORDERED: methaDONE HCL 10 MG TABLET PO SCH (12:15)
[2023-04-27] MEDS: amLODIPine BESYLATE 10 MG TABLET (FP) PO SCH (12:27)
[2023-04-27] MEDS: glyBURIDE 5 MG TABLET PO SCH (12:27)
[2023-04-27] MEDS: metFORMIN HCL 500 MG TABLET (FP) PO SCH (12:27)
[2023-04-27] MEDS: methaDONE 80 MG, methaDONE 10 MG PO SCH (12:29)
[2023-04-27] MEDS: INSULIN ASPART SLIDING SCALE (NOVOLOG) 1 VIAL SQ SCH (17:41)
[2023-04-27] MEDS: BENZOCAINE/MENTHOL (CHLORASEPTIC ) LOZENGE MM PRN (18:22)
[2023-04-27] MEDS: ATORVASTATIN CA 10 MG TABLET (FP) PO SCH (22:08)
[2023-04-27] MEDS: THIAMINE HCL 100 MG TABLET (FP) PO SCH (22:08)
[2023-04-27] MEDS: hydrOXYzine PAMOATE 25 MG CAPSULE (FP) PO PRN (22:09)
[2023-04-27] MEDS: METHOCARBAMOL 500 MG TABLET PO PRN (22:09)
[2023-04-27] MEDS: MELATONIN 5 MG TABLETS PO SCH (22:09)
[2023-04-28] MEDS: BENZONATATE 200 MG CAPSULE PO PRN (05:59)
[2023-04-28] MEDS: PRENATAL VITAMINS W/ FOLIC ACID TABLET (FP) PO SCH (09:12)
[2023-04-28] MEDS: BENZTROPINE MESYLATE 1 MG TABLET PO SCH (10:35)
[2023-04-28] MEDS: FLUoxetine HCL 20 MG CAPSULE PO SCH (10:35)
[2023-04-28] MEDS ORDERED: ALBUTEROL SO4 HFA INHALER IH PRN (11:22)
[2023-04-28 11:50] LABS: CHLORIDE 106 mmol/L (98-107); HEMATOCRIT 28.8 % (35.4-49); HEMOGLOBIN 9.8 GM/dL (11.7-16.9); MCH 33.5 pg (25.7-33.7); MEAN CELL VOLUME 98.6 fl (80-96); MEAN PLT VOLUME 7.2 fl (7.5-11.1); PLATELET COUNT 480 10^3/uL (134-434); POTASSIUM 4.8 mmol/L (3.5-5.1); RBC 2.92 M/mm3 (4.00-5.60); RDW 15.5 % (11.9-15.9); SODIUM 139 mmol/L (136-145); WHITE BLOOD COUNT 7.2 K/mm3 (4.0-10.0)
[2023-04-28 11:58] LABS: CALCIUM 9.4 mg/dL (8.5-10.1)
[2023-04-28 11:59] LABS: ALBUMIN 2.4 g/dl (3.4-5.0); ANION GAP 3 mmol/L (4-13); BLOOD UREA NITROGEN 24.2 mg/dL (7-18); CO2 31 mmol/L (21-32); GLUCOSE,RANDOM 156 mg/dL (74-106)
[2023-04-28 12:02] LABS: SGOT/AST 19 U/L (15-37); SGPT/ALT 27 U/L (13-61)
[2023-04-28 12:04] LABS: TOT PROT 6.1 g/dl (6.4-8.2)
[2023-04-28 12:05] LABS: BILIRUBIN,TOTAL 0.1 mg/dL (0.2-1)
[2023-04-28 12:07] LABS: ALK PHOS 111 U/L (45-117)
[2023-04-28] MEDS: chlordiazePOXIDE HCL 10 MG CAPSULE PO SCH (17:25)
[2023-04-28] MEDS: MAGNESIUM HYDROX 2400MG/30ML ORAL SUSPENSION 30 ML CUP PO PRN (17:26)
[2023-04-28] MEDS: risperiDONE 1 MG TABLET PO SCH (22:01)
[2023-04-28] MEDS: QUEtiapine FUMARATE 50 MG TABLET PO SCH (22:01)
[2023-04-29] MEDS: chlordiazePOXIDE HCL 10 MG CAPSULE PO ONE (05:58)
[2023-04-29 09:24] VITALS: BP 162/74; PULSE 88; RESP 18; TEMP 98
== END 2023-04-29 10:34 | disposition other institution (70) | DRG 773 ==
LOC: YASAS 09:48 → Y6N 11:50
PROVIDERS: ADMIT Allergy & Immunology; ATTEND Surgery
PROC: HZ2ZZZZ Detoxification Services for Substance Abuse Treatment (ICD-10-PCS; principal; 2023-04-27)
DX: F10.230 Alcohol dependence with withdrawal, uncomplicated (principal); F11.20 Opioid dependence, uncomplicated; F17.210 Nicotine dependence, cigarettes, uncomplicated; F25.1 Schizoaffective disorder, depressive type; F19.282 Other psychoactive substance dependence with psychoactive substance-induced sleep disorder; I10 Essential (primary) hypertension; J45.20 Mild intermittent asthma, uncomplicated; E11.9 Type 2 diabetes mellitus without complications; Z79.84 Long term (current) use of oral hypoglycemic drugs; Z56.0 Unemployment, unspecified; Z59.00 Homelessness unspecified; Z88.8 Allergy status to other drugs, medicaments and biological substances
CPT/HCPCS: 36415; 71046-TC-FY; 80053; 80305; 80307; 82962; 85027; 86780; 93005; 93010

== ENCOUNTER 2023-07-29 02:15 | Inpatient (IN) | payer OTHER ==
[2023-07-29 02:43] VITALS: BMI 19.6
[2023-07-29] MEDS ORDERED: ACETAMINOPHEN 325 MG TABLET (FP) PO PRN (04:16)
[2023-07-29] MEDS ORDERED: MAG HYDROX/AL HYDROX/SIMETH 30 ML UNIT-DOSE CUP PO PRN (04:16)
[2023-07-29] MEDS ORDERED: MAGNESIUM HYDROX 2400MG/30ML ORAL SUSPENSION 30 ML CUP PO PRN (04:16)
[2023-07-29] MEDS ORDERED: hydrOXYzine PAMOATE 25 MG CAPSULE (FP) PO PRN (04:16)
[2023-07-29] MEDS ORDERED: BENZOCAINE/MENTHOL (CHLORASEPTIC ) LOZENGE MM PRN (04:16)
[2023-07-29] MEDS ORDERED: NALOXONE HCL 0.4 MG/ML VIAL IM PRN (04:16)
[2023-07-29] MEDS ORDERED: NALOXONE (NARCAN) HCL 4 MG/0.1 ML SPRAY NS PRN (04:16)
[2023-07-29] MEDS ORDERED: LOPERAMIDE HCL 2 MG CAPSULE PO PRN (04:16)
[2023-07-29] MEDS ORDERED: IBUPROFEN 600 MG TABLET (FP) PO PRN (04:16)
[2023-07-29] MEDS ORDERED: ONDANSETRON *ODT* 4 MG TABLET SL PRN (04:16)
[2023-07-29] MEDS ORDERED: BENZONATATE 200 MG CAPSULE PO PRN (04:16)
[2023-07-29] MEDS ORDERED: NICOTINE POLACRILEX 2 MG GUM BUC PRN (04:16)
[2023-07-29] MEDS ORDERED: guaiFENesin 600 MG TABLET.ER (FP) PO PRN (04:16)
[2023-07-29] MEDS ORDERED: BISMUTH SUBSALICYLATE 524 MG/30 ML PO PRN (04:16)
[2023-07-29] MEDS ORDERED: POLYETHYLENE GLYCOL (HEALTHYLAX) 3350 17 GM PACKET PO PRN (04:16)
[2023-07-29] MEDS ORDERED: INSULIN ASPART SLIDING SCALE (NOVOLOG) 1 VIAL SQ ONE (05:58)
[2023-07-29] MEDS: INSULIN ASPART SLIDING SCALE (NOVOLOG) 1 VIAL SQ ONE (06:01)
[2023-07-29] MEDS ORDERED: methaDONE HCL 10 MG TABLET PO SCH (09:00)
[2023-07-29] MEDS: methaDONE 80 MG, methaDONE 10 MG PO SCH (09:43)
[2023-07-29] MEDS: NICOTINE 14 MG/24 HOURS TOPICAL PATCH TD SCH (09:46)
[2023-07-29] MEDS: PRENATAL VITAMINS W/ FOLIC ACID TABLET (FP) PO SCH (09:46)
[2023-07-29 12:01] LABS: HEMATOCRIT 29.6 % (35.4-49); HEMOGLOBIN 9.7 GM/dL (11.7-16.9); MCH 31.9 pg (25.7-33.7); MCHC 32.7 g/dl (32.0-35.9); MEAN CELL VOLUME 97.8 fl (80-96); MEAN PLT VOLUME 7.6 fl (7.5-11.1); PLATELET COUNT 409 10^3/uL (134-434); RBC 3.02 M/mm3 (4.00-5.60); RDW 16.4 % (11.9-15.9); WHITE BLOOD COUNT 12.3 K/mm3 (4.0-10.0)
[2023-07-29 12:13] LABS: POTASSIUM 4.3 mmol/L (3.5-5.1)
[2023-07-29] MEDS: metFORMIN HCL 500 MG TABLET (FP) PO SCH (12:14)
[2023-07-29] MEDS: ALBUTEROL SO4 HFA INHALER IH SCH (12:14)
[2023-07-29] MEDS: amLODIPine BESYLATE 10 MG TABLET (FP) PO SCH (12:14)
[2023-07-29] MEDS: ATORVASTATIN CA 10 MG TABLET (FP) PO SCH (12:14)
[2023-07-29 12:15] LABS: ALBUMIN 2.1 g/dl (3.4-5.0); BLOOD UREA NITROGEN 22.6 mg/dL (7-18)
[2023-07-29 12:18] LABS: CREATININE 1.1 mg/dL (0.55-1.3)
[2023-07-29 12:20] LABS: BILIRUBIN,TOTAL 0.2 mg/dL (0.2-1); TOT PROT 6.2 g/dl (6.4-8.2)
[2023-07-29] MEDS ORDERED: ALBUTEROL SO4 HFA INHALER IH PRN (16:24)
[2023-07-29 20:31] VITALS: RESP 16
[2023-07-29] MEDS: risperiDONE 1 MG TABLET PO SCH (22:21)
[2023-07-29] MEDS: QUEtiapine FUMARATE 50 MG TABLET PO SCH (22:21)
[2023-07-29] MEDS: THIAMINE 100 MG TABLET PO SCH (22:21)
[2023-07-29] MEDS: MELATONIN 5 MG TABLETS PO SCH (22:21)
[2023-07-29] MEDS: BENZTROPINE MESYLATE 1 MG TABLET PO SCH (22:22)
[2023-07-30] MEDS: METHOCARBAMOL 500 MG TABLET PO PRN (02:01)
[2023-07-30] MEDS: IBUPROFEN 400 MG TABLET (FP) PO PRN (02:01)
[2023-07-30] MEDS: FLUoxetine HCL 20 MG CAPSULE PO SCH (10:55)
[2023-07-30 12:34] VITALS: BP 162/84; PULSE 91; TEMP 99.1
== END 2023-07-30 14:30 | disposition home or self-care (01) | DRG 773 ==
LOC: YASAS 02:15 → Y3N 04:20
PROVIDERS: ADMIT Allergy & Immunology; ATTEND Surgery
PROC: HZ2ZZZZ Detoxification Services for Substance Abuse Treatment (ICD-10-PCS; principal; 2023-07-29)
DX: F11.20 Opioid dependence, uncomplicated (principal); F10.20 Alcohol dependence, uncomplicated; F14.20 Cocaine dependence, uncomplicated; F17.210 Nicotine dependence, cigarettes, uncomplicated; F31.9 Bipolar disorder, unspecified; F25.1 Schizoaffective disorder, depressive type; F19.24 Other psychoactive substance dependence with psychoactive substance-induced mood disorder; I10 Essential (primary) hypertension; J45.909 Unspecified asthma, uncomplicated; E78.5 Hyperlipidemia, unspecified; E11.9 Type 2 diabetes mellitus without complications; Z79.84 Long term (current) use of oral hypoglycemic drugs; Z88.8 Allergy status to other drugs, medicaments and biological substances
CPT/HCPCS: 36415; 80053; 80305; 80307; 82962; 85027; 86780; 93005; 93010

== ENCOUNTER 2024-02-02 08:43 | Inpatient (IN) | payer OTHER ==
[2024-02-02 09:04] VITALS: BMI 21.2
[2024-02-02] MEDS ORDERED: MAGNESIUM HYDROX 2400MG/30ML ORAL SUSPENSION 30 ML CUP PO PRN (09:47)
[2024-02-02] MEDS ORDERED: IBUPROFEN 600 MG TABLET (FP) PO PRN (09:47)
[2024-02-02] MEDS ORDERED: IBUPROFEN 400 MG TABLET (FP) PO PRN (09:47)
[2024-02-02] MEDS ORDERED: NICOTINE POLACRILEX 2 MG LOZENGE BC PRN (09:47)
[2024-02-02] MEDS ORDERED: LOPERAMIDE HCL 2 MG CAPSULE PO PRN (09:47)
[2024-02-02] MEDS ORDERED: guaiFENesin 600 MG TABLET.ER (FP) PO PRN (09:47)
[2024-02-02] MEDS ORDERED: POLYETHYLENE GLYCOL (HEALTHYLAX) 3350 17 GM PACKET PO PRN (09:47)
[2024-02-02] MEDS ORDERED: BENZOCAINE/MENTHOL (CHLORASEPTIC ) LOZENGE MM PRN (09:47)
[2024-02-02] MEDS ORDERED: BENZONATATE 200 MG CAPSULE PO PRN (09:47)
[2024-02-02] MEDS ORDERED: ACETAMINOPHEN 325 MG TABLET (FP) PO PRN (09:47)
[2024-02-02] MEDS ORDERED: NALOXONE (NARCAN) HCL 4 MG/0.1 ML SPRAY NS PRN (09:47)
[2024-02-02] MEDS ORDERED: P-EPHED 60MG/TRIPROLIDI 2.5MG TABLET PO PRN (09:47)
[2024-02-02] MEDS ORDERED: NICOTINE POLACRILEX 2 MG GUM BUC PRN (09:47)
[2024-02-02] MEDS ORDERED: ALBUTEROL SO4 HFA INHALER IH PRN (10:15)
[2024-02-02] MEDS: BACITRACIN 0.9 GM PACKET TP SCH (10:52)
[2024-02-02] MEDS: PRENATAL VITAMINS W/ FOLIC ACID TABLET (FP) PO SCH (10:52)
[2024-02-02] MEDS: amLODIPine BESYLATE 10 MG TABLET (FP) PO SCH (10:52)
[2024-02-02] MEDS: methaDONE 80 MG, methaDONE 10 MG PO SCH (11:23)
[2024-02-02] MEDS: methaDONE HCL 40 MG DISPERSABLE TABLET PO SCH (11:45)
[2024-02-02] MEDS: metFORMIN HCL 500 MG TABLET (FP) PO SCH (17:19)
[2024-02-02] MEDS: cloNIDine HCL 0.1 MG TABLET PO ONE (18:48)
[2024-02-02] MEDS: THIAMINE 100 MG TABLET PO SCH (22:53)
[2024-02-02] MEDS: MAG HYDROX/AL HYDROX/SIMETH 30 ML UNIT-DOSE CUP PO PRN (22:53)
[2024-02-02] MEDS: MELATONIN 5 MG TABLETS PO SCH (22:53)
[2024-02-02] MEDS: ATORVASTATIN CA 10 MG TABLET (FP) PO SCH (22:55)
[2024-02-02] MEDS: INSULIN ASPART SLIDING SCALE (NOVOLOG) 1 VIAL SQ SCH (22:58)
[2024-02-03 11:14] LABS: HEMATOCRIT 26.8 % (35.4-49); HEMOGLOBIN 8.7 GM/dL (11.7-16.9); MCH 31.6 pg (25.7-33.7); MCHC 32.5 g/dl (32.0-35.9); MEAN PLT VOLUME 7.1 fl (7.5-11.1); PLATELET COUNT 586 10^3/uL (134-434); RBC 2.76 M/mm3 (4.00-5.60); RDW 15.7 % (11.9-15.9); WHITE BLOOD COUNT 7.1 K/mm3 (4.0-10.0)
[2024-02-03 11:15] LABS: POTASSIUM 4.3 mmol/L (3.5-5.1)
[2024-02-03 11:19] LABS: ALBUMIN 1.7 g/dl (3.4-5.0); BLOOD UREA NITROGEN 28.2 mg/dL (7-18)
[2024-02-03 11:23] LABS: BILIRUBIN,TOTAL 0.1 mg/dL (0.2-1)
[2024-02-03 11:24] LABS: TOT PROT 5.8 g/dl (6.4-8.2)
[2024-02-03] MEDS ORDERED: QUEtiapine FUMARATE 50 MG TABLET PO SCH (22:00)
[2024-02-03] MEDS ORDERED: risperiDONE 1 MG TABLET PO SCH (22:00)
[2024-02-03] MEDS: BENZTROPINE MESYLATE 0.5 MG TABLET (FP) PO SCH (22:13)
[2024-02-03] MEDS: clonazePAM 0.5 MG ODT TABLETS SL SCH (22:13)
[2024-02-04] MEDS: risperiDONE 1 MG TABLET PO SCH (10:02)
[2024-02-04] MEDS: FLUoxetine HCL 20 MG CAPSULE PO SCH (10:02)
[2024-02-04] MEDS ORDERED: MAG HYDROX/AL HYDROX/SIMETH 30 ML UNIT-DOSE CUP PO PRN (13:59)
[2024-02-04] MEDS ORDERED: FAMOTIDINE 20 MG TABLET PO SCH (14:00)
[2024-02-04] MEDS: FAMOTIDINE 20 MG TABLET PO PRN (21:48)
[2024-02-05] MEDS: methaDONE HCL 40 MG DISPERSABLE TABLET PO SCH (06:35)
[2024-02-05 09:08] LABS: EPI CELLS 3 /uL (0-25.1); HYALINE CASTS 0 /uL (0-3.1); URINE APPEARANCE CLEAR; URINE BACTERIA 3 /uL (0-1359); URINE BILIRUBIN NEGATIVE (NEGATIVE); URINE COLOR YELLOW; URINE GLUCOSE (UA) NEGATIVE (NEGATIVE); URINE KETONE NEGATIVE (NEGATIVE); URINE LEUK ESTERASE NEGATIVE (NEGATIVE); URINE NITRITE NEGATIVE (NEGATIVE); URINE PROTEIN 3+ (NEGATIVE); URINE RBC 7 /uL (0-23.9); URINE UROBILINOGEN 0.2 mg/dL (0.2-1.0); URINE WBC 3 /uL (0-25.8)
[2024-02-05] MEDS ORDERED: INSULIN (NOVOLOG) ASPART 100 UNITS/ML 10ML VIAL ONE (11:43)
[2024-02-07 08:50] VITALS: BP 170/77; PULSE 73; RESP 18; TEMP 97
[2024-02-07] MEDS: BENZTROPINE MESYLATE 1 MG TABLET PO SCH (10:41)
== END 2024-02-07 16:33 | disposition left against medical advice (07) | DRG 770 ==
LOC: YASAS 08:43 → Y3NR 10:59 → Y3E 02-04 10:48
PROVIDERS: ADMIT Allergy & Immunology; ATTEND Psychiatry & Neurology Pain Medicine
PROC: HZ42ZZZ Group Counseling for Substance Abuse Treatment, Cognitive-Behavioral (ICD-10-PCS; principal; 2024-02-02)
DX: F10.20 Alcohol dependence, uncomplicated (principal); F11.20 Opioid dependence, uncomplicated; F14.20 Cocaine dependence, uncomplicated; F17.210 Nicotine dependence, cigarettes, uncomplicated; F25.1 Schizoaffective disorder, depressive type; F31.9 Bipolar disorder, unspecified; F19.24 Other psychoactive substance dependence with psychoactive substance-induced mood disorder; I10 Essential (primary) hypertension; J45.20 Mild intermittent asthma, uncomplicated; K21.9 Gastro-esophageal reflux disease without esophagitis; E78.5 Hyperlipidemia, unspecified; E11.9 Type 2 diabetes mellitus without complications; Z79.84 Long term (current) use of oral hypoglycemic drugs; Z59.00 Homelessness unspecified; Z56.0 Unemployment, unspecified; Z88.8 Allergy status to other drugs, medicaments and biological substances
CPT/HCPCS: 0241U-QW; 36415; 71046-TC-FY; 80053; 81003; 82962; 85027; 86780; 93005; 93010

== ENCOUNTER 2024-04-09 10:30 | Inpatient (IN) | payer OTHER ==
[2024-04-09 10:51] VITALS: BMI 21.2
[2024-04-09] MEDS ORDERED: NICOTINE POLACRILEX 2 MG GUM BUC PRN (11:07)
[2024-04-09] MEDS ORDERED: BENZONATATE 200 MG CAPSULE PO PRN (11:07)
[2024-04-09] MEDS ORDERED: NICOTINE POLACRILEX 2 MG LOZENGE BC PRN (11:07)
[2024-04-09] MEDS ORDERED: guaiFENesin 600 MG TABLET.ER (FP) PO PRN (11:07)
[2024-04-09] MEDS ORDERED: IBUPROFEN 400 MG TABLET (FP) PO PRN (11:07)
[2024-04-09] MEDS ORDERED: NALOXONE (NARCAN) HCL 4 MG/0.1 ML SPRAY NS PRN (11:07)
[2024-04-09] MEDS ORDERED: IBUPROFEN 600 MG TABLET (FP) PO PRN (11:07)
[2024-04-09] MEDS ORDERED: BENZOCAINE/MENTHOL (CHLORASEPTIC ) LOZENGE MM PRN (11:07)
[2024-04-09] MEDS ORDERED: POLYETHYLENE GLYCOL (HEALTHYLAX) 3350 17 GM PACKET PO PRN (11:07)
[2024-04-09] MEDS ORDERED: MAGNESIUM HYDROX 2400MG/30ML ORAL SUSPENSION 30 ML CUP PO PRN (11:07)
[2024-04-09] MEDS ORDERED: ALBUTEROL SO4 HFA INHALER IH PRN (12:09)
[2024-04-09] MEDS ORDERED: INSULIN (NOVOLOG) ASPART 100 UNITS/ML 10ML VIAL ONE (12:43)
[2024-04-09] MEDS: INSULIN ASPART SLIDING SCALE (NOVOLOG) 1 VIAL SQ SCH (12:44)
[2024-04-09] MEDS: amLODIPine BESYLATE 5 MG TABLET (FP) PO ONE (12:44)
[2024-04-09] MEDS: metFORMIN HCL 500 MG TABLET (FP) PO SCH (16:55)
[2024-04-09] MEDS: cloNIDine HCL 0.1 MG TABLET PO ONE (20:52)
[2024-04-09] MEDS: ATORVASTATIN CA 10 MG TABLET (FP) PO SCH (21:24)
[2024-04-09] MEDS: THIAMINE 100 MG TABLET PO SCH (21:24)
[2024-04-09] MEDS: MELATONIN 5 MG TABLETS PO SCH (21:24)
[2024-04-10] MEDS: amLODIPine BESYLATE 10 MG TABLET (FP) PO SCH (10:25)
[2024-04-10] MEDS: methaDONE HCL 40 MG DISPERSABLE TABLET PO SCH (10:25)
[2024-04-10] MEDS: PRENATAL VITAMINS W/ FOLIC ACID TABLET (FP) PO SCH (10:27)
[2024-04-10] MEDS: FAMOTIDINE 20 MG TABLET PO PRN (10:30)
[2024-04-10 10:49] LABS: CHLORIDE 110 mmol/L (98-107); POTASSIUM 4.4 mmol/L (3.5-5.1); SODIUM 141 mmol/L (136-145)
[2024-04-10 10:59] LABS: HEMATOCRIT 29.1 % (35.4-49); HEMOGLOBIN 9.7 GM/dL (11.7-16.9); MCH 32.7 pg (25.7-33.7); MCHC 33.3 g/dl (32.0-35.9); MEAN CELL VOLUME 98.2 fl (80-96); MEAN PLT VOLUME 7.6 fl (7.5-11.1); PLATELET COUNT 278 10^3/uL (134-434); RBC 2.96 M/mm3 (4.00-5.60); RDW 14.8 % (11.9-15.9)
[2024-04-10 11:09] LABS: CALCIUM 8.9 mg/dL (8.5-10.1); GLUCOSE,RANDOM 129 mg/dL (74-106)
[2024-04-10 11:10] LABS: ALBUMIN 2.3 g/dl (3.4-5.0); ANION GAP 2 mmol/L (4-13); CO2 29 mmol/L (21-32)
[2024-04-10 11:13] LABS: BLOOD UREA NITROGEN 28.8 mg/dL (7-18); CREATININE 1.1 mg/dL (0.55-1.3); SGPT/ALT 31 U/L (13-61)
[2024-04-10 11:14] LABS: BILIRUBIN,TOTAL 0.3 mg/dL (0.2-1); TOT PROT 5.7 g/dl (6.4-8.2)
[2024-04-10 11:16] LABS: ALK PHOS 105 U/L (45-117); SGOT/AST 24 U/L (15-37)
[2024-04-10] MEDS: TUBERCULIN PPD 5 TU/0.1ML VIAL ID ONE (12:56)
[2024-04-10] MEDS: risperiDONE 1 MG TABLET PO SCH (15:14)
[2024-04-10] MEDS: BENZTROPINE MESYLATE 1 MG TABLET PO SCH (15:14)
[2024-04-10] MEDS: FLUoxetine HCL 20 MG CAPSULE PO SCH (15:14)
[2024-04-10] MEDS: QUEtiapine FUMARATE 50 MG TABLET PO SCH (21:09)
[2024-04-10] MEDS: levETIRAcetam 500 MG TABLET (FP) PO ONE (22:26)
[2024-04-11] MEDS: FERROUS SO4 325 MG TABLET (FP) PO SCH (09:45)
[2024-04-11] MEDS: HYDROCHLOROTHIAZIDE 12.5 MG CAPSULE (FP) PO SCH (11:53)
[2024-04-11] MEDS: clonazePAM 1 MG ODT TABLETS SL SCH (21:41)
[2024-04-12] MEDS: MAG HYDROX/AL HYDROX/SIMETH 30 ML UNIT-DOSE CUP PO PRN (05:48)
[2024-04-13] MEDS ORDERED: methaDONE HCL 40 MG DISPERSABLE TABLET PO SCH (16:54)
[2024-04-13] MEDS: clonazePAM 0.25 MG ODT TABLETS SL SCH (21:06)
[2024-04-13] MEDS: QUEtiapine FUMARATE 25 MG TABLET PO SCH (21:09)
[2024-04-13] MEDS ORDERED: clonazePAM 1 MG ODT TABLETS SL SCH (22:00)
[2024-04-14] MEDS: methaDONE 40 MG, methaDONE 30 MG PO SCH (05:37)
[2024-04-15] MEDS: LOPERAMIDE HCL 2 MG CAPSULE PO PRN (04:09)
[2024-04-15] MEDS ORDERED: INSULIN (NOVOLOG) ASPART 100 UNITS/ML 10ML VIAL ONE (16:28)
[2024-04-16] MEDS: ACETAMINOPHEN 325 MG TABLET (FP) PO PRN (04:22)
[2024-04-16 07:01] VITALS: RESP 18; TEMP 97.9
[2024-04-16 11:25] VITALS: BP 151/75; PULSE 66
[2024-04-16] MEDS: DIPHENOXYLATE 2.5/ATROPINE.025 1 COMBO TABLET PO PRN (14:46)
== END 2024-04-16 17:52 | disposition left against medical advice (07) | DRG 770 ==
LOC: YASAS 10:30 → Y5N 11:50
PROVIDERS: ADMIT Psychiatry & Neurology Pain Medicine; ATTEND Psychiatry & Neurology Pain Medicine
PROC: HZ42ZZZ Group Counseling for Substance Abuse Treatment, Cognitive-Behavioral (ICD-10-PCS; principal; 2024-04-09)
DX: F11.20 Opioid dependence, uncomplicated (principal); F10.20 Alcohol dependence, uncomplicated; F14.20 Cocaine dependence, uncomplicated; F17.210 Nicotine dependence, cigarettes, uncomplicated; F31.9 Bipolar disorder, unspecified; F20.9 Schizophrenia, unspecified; F19.282 Other psychoactive substance dependence with psychoactive substance-induced sleep disorder; F19.24 Other psychoactive substance dependence with psychoactive substance-induced mood disorder; U07.1 COVID-19; D64.9 Anemia, unspecified; E78.5 Hyperlipidemia, unspecified; I10 Essential (primary) hypertension; J45.20 Mild intermittent asthma, uncomplicated; K21.9 Gastro-esophageal reflux disease without esophagitis; E11.9 Type 2 diabetes mellitus without complications; Z79.84 Long term (current) use of oral hypoglycemic drugs
CPT/HCPCS: 0241U-QW; 36415; 80053; 80305; 80307; 82962; 85027; 86780; 87811

== ENCOUNTER 2024-06-25 08:32 | Inpatient (IN) | payer OTHER ==
[2024-06-25 08:50] VITALS: BMI 21.2
[2024-06-25] MEDS ORDERED: ACETAMINOPHEN 325 MG TABLET (FP) PO PRN (11:29)
[2024-06-25] MEDS ORDERED: BENZONATATE 200 MG CAPSULE PO PRN (11:29)
[2024-06-25] MEDS ORDERED: DICYCLOMINE HCL 10 MG CAPSULE PO PRN (11:29)
[2024-06-25] MEDS ORDERED: guaiFENesin 600 MG TABLET.ER (FP) PO PRN (11:29)
[2024-06-25] MEDS ORDERED: MAG HYDROX/AL HYDROX/SIMETH 30 ML UNIT-DOSE CUP PO PRN (11:29)
[2024-06-25] MEDS ORDERED: MAGNESIUM HYDROX 2400MG/30ML ORAL SUSPENSION 30 ML CUP PO PRN (11:29)
[2024-06-25] MEDS ORDERED: NALOXONE (NARCAN) HCL 4 MG/0.1 ML SPRAY NS PRN (11:29)
[2024-06-25] MEDS ORDERED: POLYETHYLENE GLYCOL (HEALTHYLAX) 3350 17 GM PACKET PO PRN (11:29)
[2024-06-25] MEDS ORDERED: ONDANSETRON *ODT* 4 MG TABLET SL PRN (11:29)
[2024-06-25] MEDS ORDERED: INSULIN (NOVOLOG) ASPART 100 UNITS/ML 10ML VIAL ONE (12:22)
[2024-06-25] MEDS: INSULIN (NOVOLOG) ASPART 100 UNITS/ML 10ML VIAL SQ ONE (12:26)
[2024-06-25] MEDS ORDERED: chlordiazePOXIDE HCL 25 MG CAPSULE PO PRN (13:40)
[2024-06-25] MEDS ORDERED: chlordiazePOXIDE HCL 25 MG CAPSULE PO SCH (17:00)
[2024-06-25] MEDS: metFORMIN HCL 500 MG TABLET (FP) PO SCH (17:29)
[2024-06-25] MEDS: MELATONIN 5 MG TABLETS PO SCH (22:42)
[2024-06-25] MEDS: THIAMINE 100 MG TABLET PO SCH (22:42)
[2024-06-25] MEDS: hydrOXYzine PAMOATE 25 MG CAPSULE (FP) PO PRN (22:44)
[2024-06-26] MEDS: amLODIPine BESYLATE 10 MG TABLET (FP) PO SCH (10:00)
[2024-06-26] MEDS: PRENATAL VITAMINS W/ FOLIC ACID TABLET (FP) PO SCH (10:00)
[2024-06-26] MEDS: methaDONE HCL 40 MG DISPERSABLE TABLET PO SCH (10:01)
[2024-06-26] MEDS: clonazePAM 1 MG ODT TABLETS SL SCH (11:13)
[2024-06-26] MEDS: FLUoxetine HCL 20 MG CAPSULE PO SCH (11:13)
[2024-06-26] MEDS: BENZTROPINE MESYLATE 1 MG TABLET PO SCH (11:13)
[2024-06-26 18:14] LABS: HEMATOCRIT 32.3 % (40.1-51.0); HEMOGLOBIN 10.2 g/dL (13.7-17.5); MCHC 31.6 g/dl (32.3-36.5); MEAN CELL VOLUME 100.6 fl (79.0-92.2); MEAN PLT VOLUME 9.3 fl (9.4-12.4); PLATELET COUNT 678 x10^3/uL (163-337); RDW 14.2 % (12.2-16.1)
[2024-06-26] MEDS: risperiDONE 1 MG TABLET PO SCH (22:34)
[2024-06-26] MEDS: QUEtiapine FUMARATE 50 MG TABLET PO SCH (22:35)
[2024-06-27] MEDS ORDERED: chlordiazePOXIDE HCL 25 MG CAPSULE PO SCH (05:00)
[2024-06-27] MEDS: BISMUTH SUBSALICYLATE 524 MG/30 ML PO PRN (20:26)
[2024-06-27] MEDS: LOPERAMIDE HCL 2 MG CAPSULE PO PRN (21:27)
[2024-06-28] MEDS ORDERED: chlordiazePOXIDE HCL 10 MG CAPSULE PO PRN
[2024-06-28] MEDS ORDERED: chlordiazePOXIDE HCL 10 MG CAPSULE PO SCH (05:00)
[2024-06-28] MEDS: clonazePAM 0.25 MG ODT TABLETS SL SCH (21:49)
[2024-06-28] MEDS ORDERED: risperiDONE 0.5 MG TABLET PO SCH (22:00)
[2024-06-29] MEDS ORDERED: chlordiazePOXIDE HCL 10 MG CAPSULE PO SCH (05:00)
[2024-06-29 09:24] VITALS: BP 131/81; PULSE 75; RESP 17; TEMP 96.8
[2024-06-30] MEDS ORDERED: chlordiazePOXIDE HCL 10 MG CAPSULE PO ONE (05:00)
== END 2024-06-29 10:53 | disposition home or self-care (01) | DRG 773 ==
LOC: YASAS 08:32 → Y6N 12:16
PROVIDERS: ADMIT Psychiatry & Neurology Pain Medicine; ATTEND Family Medicine Addiction Medicine
PROC: HZ2ZZZZ Detoxification Services for Substance Abuse Treatment (ICD-10-PCS; principal; 2024-06-25)
DX: F11.23 Opioid dependence with withdrawal (principal); F14.20 Cocaine dependence, uncomplicated; F17.210 Nicotine dependence, cigarettes, uncomplicated; F19.282 Other psychoactive substance dependence with psychoactive substance-induced sleep disorder; F19.24 Other psychoactive substance dependence with psychoactive substance-induced mood disorder; F31.9 Bipolar disorder, unspecified; F25.1 Schizoaffective disorder, depressive type; I10 Essential (primary) hypertension; E78.5 Hyperlipidemia, unspecified; E11.9 Type 2 diabetes mellitus without complications; Z79.84 Long term (current) use of oral hypoglycemic drugs; J45.20 Mild intermittent asthma, uncomplicated; R26.89 Other abnormalities of gait and mobility; Z59.01 Sheltered homelessness
CPT/HCPCS: 36415; 80305; 80307; 82140; 82962; 85027; 86780; 93005; 93010

== ENCOUNTER 2024-07-08 01:48 | Inpatient (IN) | payer OTHER ==
[2024-07-08 02:04] VITALS: BMI 21.5
[2024-07-08] MEDS ORDERED: NICOTINE POLACRILEX 2 MG GUM BUC PRN (03:39)
[2024-07-08] MEDS ORDERED: IBUPROFEN 400 MG TABLET (FP) PO PRN (03:39)
[2024-07-08] MEDS ORDERED: MAG HYDROX/AL HYDROX/SIMETH 30 ML UNIT-DOSE CUP PO PRN (03:39)
[2024-07-08] MEDS ORDERED: ACETAMINOPHEN 325 MG TABLET (FP) PO PRN (03:39)
[2024-07-08] MEDS ORDERED: LOPERAMIDE HCL 2 MG CAPSULE PO PRN (03:39)
[2024-07-08] MEDS ORDERED: NALOXONE (NARCAN) HCL 4 MG/0.1 ML SPRAY NS PRN (03:39)
[2024-07-08] MEDS ORDERED: POLYETHYLENE GLYCOL (HEALTHYLAX) 3350 17 GM PACKET PO PRN (03:39)
[2024-07-08] MEDS ORDERED: MAGNESIUM HYDROX 2400MG/30ML ORAL SUSPENSION 30 ML CUP PO PRN (03:39)
[2024-07-08] MEDS: hydrOXYzine PAMOATE 25 MG CAPSULE (FP) PO PRN (05:14)
[2024-07-08] MEDS: BENZONATATE 200 MG CAPSULE PO PRN (05:14)
[2024-07-08] MEDS: IBUPROFEN 600 MG TABLET (FP) PO PRN (05:14)
[2024-07-08] MEDS: INSULIN ASPART SLIDING SCALE (NOVOLOG) 1 VIAL SQ SCH (06:35)
[2024-07-08] MEDS: methaDONE HCL 40 MG DISPERSABLE TABLET PO SCH (10:07)
[2024-07-08] MEDS: NICOTINE 21 MG/24 HOURS TOPICAL PATCH TD SCH (10:08)
[2024-07-08] MEDS: PRENATAL VITAMINS W/ FOLIC ACID TABLET (FP) PO SCH (10:09)
[2024-07-08] MEDS: FAMOTIDINE 20 MG TABLET PO SCH (11:11)
[2024-07-08] MEDS: HYDROCHLOROTHIAZIDE 12.5 MG CAPSULE (FP) PO SCH (11:11)
[2024-07-08] MEDS: amLODIPine BESYLATE 10 MG TABLET (FP) PO SCH (11:11)
[2024-07-08] MEDS: ALBUTEROL SO4 HFA INHALER IH PRN (11:15)
[2024-07-08] MEDS ORDERED: INSULIN (NOVOLOG) ASPART 100 UNITS/ML 10ML VIAL ONE (11:45)
[2024-07-08] MEDS: LIDOCAINE 5% TOPICAL PATCH TP SCH (11:49)
[2024-07-08 14:04] LABS: EPI CELLS 4 /uL (0-25.1); HYALINE CASTS 0 /uL (0-3.1); URINE APPEARANCE CLEAR; URINE BACTERIA 5 /uL (0-1359); URINE BILIRUBIN NEGATIVE (NEGATIVE); URINE COLOR YELLOW; URINE GLUCOSE (UA) NEGATIVE (NEGATIVE); URINE KETONE NEGATIVE (NEGATIVE); URINE LEUK ESTERASE NEGATIVE (NEGATIVE); URINE NITRITE NEGATIVE (NEGATIVE); URINE PROTEIN 3+ (NEGATIVE); URINE RBC 5 /uL (0-23.9); URINE WBC 2 /uL (0-25.8)
[2024-07-08] MEDS: metFORMIN HCL 500 MG TABLET (FP) PO SCH (17:11)
[2024-07-08] MEDS: MELATONIN 5 MG TABLETS PO SCH (21:25)
[2024-07-08] MEDS: ATORVASTATIN CA 10 MG TABLET (FP) PO SCH (21:26)
[2024-07-08] MEDS: THIAMINE 100 MG TABLET PO SCH (21:27)
[2024-07-08] MEDS: LIDOCAINE PATCH REMOVAL MC SCH (21:34)
[2024-07-09] MEDS: guaiFENesin 600 MG TABLET.ER (FP) PO PRN (06:53)
[2024-07-09 09:00] LABS: HEMATOCRIT 31.9 % (40.1-51.0); HEMOGLOBIN 10.1 g/dL (13.7-17.5); MCHC 31.7 g/dl (32.3-36.5); MEAN CELL VOLUME 100.3 fl (79.0-92.2); MEAN PLT VOLUME 9.9 fl (9.4-12.4); PLATELET COUNT 310 x10^3/uL (163-337); RDW 14.6 % (12.2-16.1)
[2024-07-09] MEDS: FLUoxetine HCL 20 MG CAPSULE PO SCH (09:53)
[2024-07-09] MEDS: PATIENT'S OWN MEDICATION (NON-FORMULARY) (Clonazepam [Klonopin -] 0.5 MG Tablet) PO SCH (10:27)
[2024-07-09] MEDS ORDERED: clonazePAM 0.25 MG ODT TABLETS SL SCH (10:54)
[2024-07-09] MEDS: clonazePAM 0.25 MG ODT TABLETS SL SCH (11:14)
[2024-07-09] MEDS ORDERED: INSULIN (NOVOLOG) ASPART 100 UNITS/ML 10ML VIAL ONE (11:19)
[2024-07-09] MEDS: clonazePAM 0.5 MG ODT TABLETS SL SCH (11:33)
[2024-07-09] MEDS: risperiDONE 1 MG TABLET PO SCH (21:18)
[2024-07-10] MEDS: BENZOCAINE/MENTHOL (CHLORASEPTIC ) LOZENGE MM PRN (06:11)
[2024-07-10] MEDS ORDERED: INSULIN (NOVOLOG) ASPART 100 UNITS/ML 10ML VIAL ONE ×4 (11:52→21:40)
[2024-07-10] MEDS ORDERED: NICOTINE 21 MG/24 HOURS TOPICAL PATCH TD PRN (15:37)
[2024-07-10] MEDS ORDERED: guaiFENesin 600 MG TABLET.ER (FP) PO PRN (16:26)
[2024-07-10] MEDS: AZITHROMYCIN 250 MG TABLET PO ONE (17:32)
[2024-07-11] MEDS ORDERED: methaDONE HCL 40 MG DISPERSABLE TABLET PO SCH (06:00)
[2024-07-11] MEDS: methaDONE 40 MG, methaDONE 30 MG PO SCH (06:20)
[2024-07-11] MEDS: OXYMETAZOLINE 0.05% NASAL SOLUTION 15 ML BOTTLE NS PRN (06:58)
[2024-07-11] MEDS: AZITHROMYCIN 250 MG TABLET PO SCH (11:12)
[2024-07-11] MEDS ORDERED: INSULIN (NOVOLOG) ASPART 100 UNITS/ML 10ML VIAL ONE (21:27)
[2024-07-12] MEDS ORDERED: INSULIN (NOVOLOG) ASPART 100 UNITS/ML 10ML VIAL ONE ×2 (11:47→21:41)
[2024-07-13] MEDS ORDERED: INSULIN (NOVOLOG) ASPART 100 UNITS/ML 10ML VIAL ONE ×2 (16:43→21:34)
[2024-07-14] MEDS ORDERED: INSULIN (NOVOLOG) ASPART 100 UNITS/ML 10ML VIAL ONE ×3 (11:06→17:15)
[2024-07-14] MEDS: INSULIN ASPART SLIDING SCALE (NOVOLOG) 1 VIAL SQ SCH (17:04)
[2024-07-15] MEDS ORDERED: INSULIN (NOVOLOG) ASPART 100 UNITS/ML 10ML VIAL ONE (16:49)
[2024-07-16] MEDS: clonazePAM 0.25 MG ODT TABLETS SL SCH (10:15)
[2024-07-16] MEDS ORDERED: INSULIN (NOVOLOG) ASPART 100 UNITS/ML 10ML VIAL ONE (16:54)
[2024-07-17] MEDS ORDERED: INSULIN (NOVOLOG) ASPART 100 UNITS/ML 10ML VIAL ONE (16:37)
[2024-07-18] MEDS ORDERED: INSULIN (NOVOLOG) ASPART 100 UNITS/ML 10ML VIAL ONE (08:08)
[2024-07-19] MEDS ORDERED: methaDONE HCL 40 MG DISPERSABLE TABLET PO SCH ×2 (06:00)
[2024-07-19] MEDS: methaDONE 40 MG, methaDONE 30 MG PO SCH (06:17)
[2024-07-19] MEDS: amLODIPine BESYLATE 10 MG TABLET (FP) PO SCH (09:59)
[2024-07-19] MEDS ORDERED: INSULIN (NOVOLOG) ASPART 100 UNITS/ML 10ML VIAL ONE (21:36)
[2024-07-20] MEDS ORDERED: methaDONE HCL 40 MG DISPERSABLE TABLET PO SCH (13:24)
[2024-07-20] MEDS ORDERED: INSULIN (NOVOLOG) ASPART 100 UNITS/ML 10ML VIAL ONE (16:34)
[2024-07-21] MEDS: methaDONE 40 MG, methaDONE 20 MG PO SCH (06:10)
[2024-07-21] MEDS ORDERED: INSULIN (NOVOLOG) ASPART 100 UNITS/ML 10ML VIAL ONE (07:32)
[2024-07-22] MEDS ORDERED: INSULIN (NOVOLOG) ASPART 100 UNITS/ML 10ML VIAL ONE (08:36)
[2024-07-22] MEDS: LIDOCAINE 5% TOPICAL PATCH TP PRN (09:55)
[2024-07-25] MEDS: MELATONIN 5 MG TABLETS PO PRN (21:17)
[2024-07-26] MEDS: clonazePAM 0.25 MG ODT TABLETS SL SCH (21:19)
[2024-07-27] MEDS ORDERED: INSULIN (NOVOLOG) ASPART 100 UNITS/ML 10ML VIAL ONE ×2 (07:52→21:31)
[2024-07-28] MEDS ORDERED: methaDONE HCL 40 MG DISPERSABLE TABLET PO SCH (06:00)
[2024-07-28] MEDS: methaDONE 40 MG, methaDONE 10 MG PO SCH (06:07)
[2024-07-28] MEDS ORDERED: INSULIN (NOVOLOG) ASPART 100 UNITS/ML 10ML VIAL ONE (06:49)
[2024-07-29] MEDS ORDERED: INSULIN (NOVOLOG) ASPART 100 UNITS/ML 10ML VIAL ONE ×2 (06:34→21:53)
[2024-07-30] MEDS ORDERED: INSULIN (NOVOLOG) ASPART 100 UNITS/ML 10ML VIAL ONE ×3 (06:38→21:38)
[2024-07-31] MEDS ORDERED: INSULIN (NOVOLOG) ASPART 100 UNITS/ML 10ML VIAL ONE ×2 (16:25→21:41)
[2024-08-02 06:36] VITALS: RESP 17; TEMP 97.5
[2024-08-02 09:04] VITALS: BP 152/75; PULSE 79
[2024-08-02] MEDS: clonazePAM 0.25 MG ODT TABLETS SL SCH (12:50)
[2024-08-02] MEDS ORDERED: clonazePAM 0.25 MG ODT TABLETS SL SCH (22:00)
== END 2024-08-02 14:45 | disposition home or self-care (01) | DRG 772 ==
LOC: YASAS 01:48 → Y3E 04:31
PROVIDERS: ADMIT Neuromusculoskeletal Medicine & OMM; ATTEND Psychiatry & Neurology Pain Medicine
PROC: HZ42ZZZ Group Counseling for Substance Abuse Treatment, Cognitive-Behavioral (ICD-10-PCS; principal; 2024-07-08)
DX: F11.20 Opioid dependence, uncomplicated (principal); F14.20 Cocaine dependence, uncomplicated; F10.20 Alcohol dependence, uncomplicated; F17.210 Nicotine dependence, cigarettes, uncomplicated; F19.24 Other psychoactive substance dependence with psychoactive substance-induced mood disorder; F31.9 Bipolar disorder, unspecified; F25.1 Schizoaffective disorder, depressive type; E78.5 Hyperlipidemia, unspecified; I10 Essential (primary) hypertension; J45.20 Mild intermittent asthma, uncomplicated; E11.9 Type 2 diabetes mellitus without complications; Z79.84 Long term (current) use of oral hypoglycemic drugs; J06.9 Acute upper respiratory infection, unspecified; Z56.0 Unemployment, unspecified; Z59.00 Homelessness unspecified
CPT/HCPCS: 0241U-QW; 36415; 80305; 80307; 81003; 82962; 85027; 86780; 87811; 93005; 93010

== ENCOUNTER 2024-09-14 08:34 | Inpatient (IN) | payer OTHER ==
[2024-09-14 08:56] VITALS: BMI 21.2
[2024-09-14] MEDS ORDERED: ACETAMINOPHEN 325 MG TABLET (FP) PO PRN (09:23)
[2024-09-14] MEDS ORDERED: MAGNESIUM HYDROX 2400MG/30ML ORAL SUSPENSION 30 ML CUP PO PRN (09:23)
[2024-09-14] MEDS ORDERED: DICYCLOMINE HCL 10 MG CAPSULE PO PRN (09:23)
[2024-09-14] MEDS ORDERED: MAG HYDROX/AL HYDROX/SIMETH 30 ML UNIT-DOSE CUP PO PRN (09:23)
[2024-09-14] MEDS ORDERED: NICOTINE POLACRILEX 2 MG GUM BUC PRN (09:23)
[2024-09-14] MEDS ORDERED: NALOXONE (NARCAN) HCL 4 MG/0.1 ML SPRAY NS PRN (09:23)
[2024-09-14] MEDS ORDERED: LOPERAMIDE HCL 2 MG CAPSULE PO PRN (09:23)
[2024-09-14] MEDS ORDERED: ONDANSETRON *ODT* 4 MG TABLET SL PRN (09:23)
[2024-09-14] MEDS ORDERED: IBUPROFEN 400 MG TABLET (FP) PO PRN (09:23)
[2024-09-14] MEDS ORDERED: BISMUTH SUBSALICYLATE 524 MG/30 ML PO PRN (09:23)
[2024-09-14] MEDS ORDERED: IBUPROFEN 600 MG TABLET (FP) PO PRN (09:23)
[2024-09-14] MEDS ORDERED: POLYETHYLENE GLYCOL (HEALTHYLAX) 3350 17 GM PACKET PO PRN (09:23)
[2024-09-14] MEDS ORDERED: amLODIPine BESYLATE 10 MG TABLET (FP) PO SCH (10:00)
[2024-09-14] MEDS ORDERED: amLODIPine BESYLATE 5 MG TABLET (FP) ONE (10:07)
[2024-09-14] MEDS ORDERED: NICOTINE 14 MG/24 HOURS TOPICAL PATCH TD ONE (10:07)
[2024-09-14] MEDS ORDERED: PRENATAL VITAMINS W/ FOLIC ACID TABLET (FP) PO ONE (10:08)
[2024-09-14] MEDS: NICOTINE 14 MG/24 HOURS TOPICAL PATCH TD SCH (10:09)
[2024-09-14] MEDS: amLODIPine BESYLATE 5 MG TABLET (FP) PO SCH (10:09)
[2024-09-14] MEDS: PRENATAL VITAMINS W/ FOLIC ACID TABLET (FP) PO SCH (10:09)
[2024-09-14] MEDS ORDERED: INSULIN (NOVOLOG) ASPART 100 UNITS/ML 10ML VIAL SQ ONE (10:31)
[2024-09-14] MEDS: INSULIN (NOVOLOG) ASPART 100 UNITS/ML 10ML VIAL SQ ONE (10:38)
[2024-09-14] MEDS: INSULIN (NOVOLOG) ASPART 100 UNITS/ML 10ML VIAL SQ SCH (17:13)
[2024-09-14] MEDS: metFORMIN HCL 500 MG TABLET (FP) PO SCH (17:32)
[2024-09-14] MEDS: BENZOCAINE/MENTHOL (CHLORASEPTIC ) LOZENGE MM PRN (19:46)
[2024-09-14] MEDS: hydrALAZINE HCL 25 MG TABLET (FP) PO ONE (20:52)
[2024-09-14] MEDS: ASPIRIN COATED 81 MG TABLET.EC PO ONE (20:52)
[2024-09-14] MEDS: guaiFENesin 600 MG TABLET.ER (FP) PO PRN (20:52)
[2024-09-14] MEDS: MELATONIN 5 MG TABLETS PO SCH (22:36)
[2024-09-14] MEDS: THIAMINE 100 MG TABLET PO SCH (22:36)
[2024-09-14] MEDS: BENZONATATE 200 MG CAPSULE PO PRN (23:27)
[2024-09-14] MEDS: hydrOXYzine PAMOATE 25 MG CAPSULE (FP) PO PRN (23:27)
[2024-09-15] MEDS: METHOCARBAMOL 500 MG TABLET PO PRN (02:12)
[2024-09-15 09:19] LABS: MCHC 31.4 g/dl (32.3-36.5); MEAN CELL VOLUME 101.8 fl (79.0-92.2); MEAN PLT VOLUME 10.0 fl (9.4-12.4); RDW 15.3 % (12.2-16.4)
[2024-09-15 09:24] LABS: CO2 32.0 mmol/L (21-32); GLUCOSE,RANDOM 283.0 mg/dL (74-106)
[2024-09-15 09:27] LABS: SGOT/AST 24.0 U/L (15-37); SGPT/ALT 35.0 U/L (13-61)
[2024-09-15 09:28] LABS: CREATININE 1.7 mg/dL (0.55-1.3)
[2024-09-15 09:29] LABS: TOT PROT 5.9 g/dl (6.4-8.2)
[2024-09-15 09:30] LABS: ALK PHOS 113.0 U/L (45-117)
[2024-09-15] MEDS: HYDROCHLOROTHIAZIDE 12.5 MG CAPSULE (FP) PO ONE (10:17)
[2024-09-15] MEDS: ALBUTEROL SO4 HFA INHALER IH PRN (10:20)
[2024-09-15] MEDS ORDERED: INSULIN (NOVOLOG) ASPART 100 UNITS/ML 10ML VIAL SQ ONE ×2 (17:09→22:30)
[2024-09-15] MEDS: INSULIN (NOVOLOG) ASPART 100 UNITS/ML 10ML VIAL SQ SCH (17:10)
[2024-09-16 06:12] VITALS: RESP 16
[2024-09-16 08:34] VITALS: BP 139/64; PULSE 72; TEMP 98.1
== END 2024-09-16 10:57 | disposition home or self-care (01) | DRG 773 ==
LOC: YASAS 08:34 → Y6N 10:14
PROVIDERS: ADMIT Allergy & Immunology; ATTEND Allergy & Immunology
PROC: HZ2ZZZZ Detoxification Services for Substance Abuse Treatment (ICD-10-PCS; principal; 2024-09-14)
DX: F10.230 Alcohol dependence with withdrawal, uncomplicated (principal); K21.9 Gastro-esophageal reflux disease without esophagitis; F17.210 Nicotine dependence, cigarettes, uncomplicated; I10 Essential (primary) hypertension; E11.9 Type 2 diabetes mellitus without complications; F31.9 Bipolar disorder, unspecified; F20.9 Schizophrenia, unspecified; F14.20 Cocaine dependence, uncomplicated; F11.20 Opioid dependence, uncomplicated
CPT/HCPCS: 36415; 80053; 80305; 80307; 82962; 85027; 86780; 93005; 93010